=== PATIENT | female | born 1970 | race Caucasian/White ===

== ENCOUNTER 2016-05-30 21:25 | Emergency (ER) | payer SELFPAY ==
[2016-05-30] MEDS ORDERED: ACETAMINOPHEN 325 MG TABLET PO ONE (21:57)
--- NOTE | 2016-05-30 21:57 | ER Document Report ---
ED Medical Screen (RME) - General Stated Complaint: TOOTHACHE Notes: [id number] female presents emergency Department with a broken tooth for the past 4 days that has notable swelling. Denies any drainage, foul odor. Denies any fevers or chills. Been taking Cipro from a family member I have greeted and performed a rapid initial assessment of this patient. A comprehensive ED assessment and evaluation of the patient, analysis of test results and completion of the medical decision making process will be conducted by additional ED providers. TRAVEL OUTSIDE OF THE [place] IN LAST 30 DAYS: No - Related Data Allergies/Adverse Reactions: No Known Allergies Allergy (Unverified 09/02/12 21:49) Past Medical History - Past Medical History Cardiac Medical History: Reports: Hx Hypercholesterolemia, Hx Hypertension Endocrine Medical History: Reports: Hx Hypothyroidism Past Surgical History: Reports: Hx Adenoidectomy, Hx Section - x3, Hx Tonsillectomy, Hx Tubal Ligation - Immunizations Hx Diphtheria, Pertussis, Tetanus Vaccination: Yes
[2016-05-30 21:58] VITALS: BP 119/60
--- NOTE | 2016-05-30 22:47 | ER Document Report ---
ED Oral Problem - General Chief Complaint: Toothache Stated Complaint: TOOTHACHE Time seen by provider: 22:47 Mode of Arrival: Ambulatory Information source: Patient TRAVEL OUTSIDE OF THE [place] IN LAST 30 DAYS: No - HPI Onset: Other - 4 days Quality of pain: Achy Severity: Moderate Context: Fractured tooth Associated symptoms: Dental decay, Toothache. denies: Chills, Cough, Drainage, Drooling, Earache, Fever, Short of breath, Tongue swelling, Unable to swallow, White patches in mouth Worsened by: Cold Relieved by: ibuprofen and BC powders Notes: Patient arrives with complaints of left upper dental pain for the last 4 days. She states that she has several dental caries and the left upper first molar broke off and she is now having some significant pain. She denies any drainage. She denies any swelling. No difficulty breathing or swallowing. She states that she recently got Medicaid and is in the process of getting established with a primary doctor who she states they will help her find a dentist. She does not currently have a dentist at this time. She states that she does not want any pain medication she would just like some antibiotics to help get over an infection. - Related Data Allergies/Adverse Reactions: No Known Allergies Allergy (Unverified 09/02/12 21:49) Past Medical History - Social History Smoking Status: Unknown if Ever Smoked Family History: Reviewed & Not Pertinent Patient has suicidal ideation: No Patient has homicidal ideation: No - Past Medical History Cardiac Medical History: Reports: Hx Hypercholesterolemia, Hx Hypertension Endocrine Medical History: Reports: Hx Hypothyroidism Renal/ Medical History: Denies: Hx Peritoneal Dialysis Past Surgical History: Reports: Hx Adenoidectomy, Hx Section - x3, Hx Tonsillectomy, Hx Tubal Ligation - Immunizations Hx Diphtheria, Pertussis, Tetanus Vaccination: Yes Review of Systems - Review of Systems -: Yes All other systems reviewed and negative Physical Exam - Vital signs Vitals: Temp Pulse Resp BP Pulse Ox 97.9 F 72 18 119/60 99 05/30/16 21:56 05/30/16 21:56 05/30/16 21:56 05/30/16 21:56 05/30/16 21:56 - General General appearance: Appears well, Alert - HEENT Head: Normocephalic, Atraumatic Eyes: Normal Pupils: PERRL Ears: Normal External canal: Normal Tympanic membrane: Normal Mouth/Lips: Other - Patient is known to have widespread dental decay. The patient has tenderness to significantly decayed tooth of the left upper first molar. There is no drainable abscess noted. There is no palatal swelling or abscess. No sublingual induration or swelling. No trismus or drooling. No submental swelling. Mucous membranes: Normal Pharynx: Normal Neck: Normal. No: Lymphadenopathy, Meningismus - Respiratory Respiratory status: No respiratory distress Chest status: Nontender Breath sounds: Normal Chest palpation: Normal - Cardiovascular Rhythm: Regular Heart sounds: Normal auscultation Murmur: No - Extremities General upper extremity: Normal inspection, Nontender, Normal color, Normal ROM , Normal temperature General lower extremity: Normal inspection, Nontender, Normal color, Normal ROM , Normal temperature, Normal weight bearing. No: Hermilo's sign - Neurological Neuro grossly intact: Yes Cognition: Normal Orientation: AAOx4 [place] Coma Scale Eye Opening: Spontaneous [place] Coma Scale Verbal: Oriented [place] Coma Scale Motor: Obeys Commands [place] Coma Scale Total: 15 Speech: Normal Motor strength normal: LUE, RUE, LLE, RLE Sensory: Normal - Psychological Associated symptoms: Normal affect, Normal mood - Skin Skin Temperature: Warm Skin Moisture: Dry Skin Color: Normal Course - Re-evaluation Re-evalutation: 05/30/16 22:54 The patient is nontoxic appearing with stable vitals. He is known to have poor dental hygiene with significant decay noted. She has tenderness over the left upper first molar. There is no drainable abscess noted. No sign of Alok angina or other deep space abscess. The patient has taken a few doses of Cipro which she got from a family member. He'll give her a dose of Pen-Vee K in the emergency department and discharge her home with pen VK. She states that she does not want anything for pain. She will take Tylenol and Motrin as needed. I will also give her referrals for a dentist. - Vital Signs Vital signs: Temp Pulse Resp BP Pulse Ox 97.9 F 72 18 119/60 99 05/30/16 21:56 05/30/16 21:56 05/30/16 21:56 05/30/16 21:56 05/30/16 21:56 Discharge - Discharge Clinical Impression: Dental caries Condition: Stable Disposition: HOME, SELF-CARE Instructions: Penicillin V K ([facility]), Toothache ([facility]), [facility] Additional Instructions: TOOTHACHE: Your pain is due to dental decay. The tooth must be repaired in order for you to feel better. You will, therefore, be referred to a dentist. We do not have dentists on the staff at [facility]. Severe swelling or drainage around a tooth usually means a dental abscess. This also requires evaluation and treatment by the dentist, but antibiotics may be prescribed while awaiting dental treatment. You should be rechecked immediately if you develop major swelling of the face, increasing pain, a lump in the jaw or gums, headache, difficulty swallowing, or fever. PENICILLIN V K: You have been given a prescription for Penicillin VK. Your physician has determined that this is the best antibiotic for your condition. Pen VK can be taken with meals, however more of the antibiotic gets into the bloodstream if it's taken on an empty stomach. Penicillin usually has no side effects. However, allergy to penicillins is common. If you have had an allergic reaction to any drug of the penicillin family, you should never take any other penicillin. Notify your doctor at once if you develop hives, itching, swelling, faintness, or shortness of breath. FOLLOW-UP CARE: You have been referred for follow-up care to the dentists listed below. Call the dentists office for an appointment as you were instructed or within the next two days. If you experience worsening or a significant change in your symptoms, notify the physician immediately or return to the Emergency Department at any time for re-evaluation. [facility] [address] [place], [place] Friday mornings, by appointment [facility] [address] [place] [address] [facility] [address] [facility]. [facility] [address] [facility] [address] [facility]. [facility] [address] [facility]'s [facility]. [email or web address] [address] [place] [address] Friday- 8:00am to 5:00 pm Will see patients from other [facility]. Charges based on income and family size and accepts Medicare, Medicaid, and Insurances Will pull molars [facility], [facility]. [id number] Hours of Operation 8:00 am - 4:30 pm weekdays The following dental offices accept Medicaid: [facility] Dr. Gaspar Dr. Thomas Dr. Sarkar Dr. Hamilton Chad Lang, [place], and Jonas oral surgery Dr. Michael ([place]) Dr. Hale ([place]) [facility] Drs. Seo ([place]) Dr. Wu ([place]) [facility] Dr. Conteh ([place]) Drs. Bunn and ([place]) Medicaid Care Line Take medications as prescribed. Follow up with a dentist at the next appointment. Follow-up sooner for increased pain, fever, difficulty breathing, swelling, or any further concerns. Prescriptions: Penicillin V Potassium [Penicillin Vk 500 mg Tablet] 500 mg PO QID #28 tablet
[2016-05-30] MEDS ORDERED: PENICILLIN V POTASSIUM 500 MG TABLET PO ONE (22:51)
== END 2016-05-30 23:02 | disposition home or self-care (01) ==
LOC: ER 21:25
DX: K02.9 Dental caries, unspecified (principal); E78.00 Pure hypercholesterolemia, unspecified; I10 Essential (primary) hypertension; E03.9 Hypothyroidism, unspecified; Z98.51 Tubal ligation status
CPT/HCPCS: 99282

== ENCOUNTER → 2016-10-01 | Outpatient (CLI) | payer MEDICAID ==
[2016-10-01 09:47] LABS: ABSOLUTE BASOPHILS # (AUTO) 0.1 10^3/uL (0.0-0.2); ABSOLUTE EOSINOPHILS # (AUTO) 0.3 10^3/uL (0.0-0.6); ABSOLUTE LYMPHOCYTES (AUTO) 2.3 10^3/uL (0.5-4.7); ABSOLUTE MONOCYTES (AUTO) 0.5 10^3/uL (0.1-1.4); ABSOLUTE NEUT (AUTO) 4.1 10^3/uL (1.7-8.2); BASOPHILS % (AUTO) 0.7 % (0-2); EOSINOPHILS % (AUTO) 4.6 % (0-6); HEMATOCRIT 35.9 % (36.0-47.0); HEMOGLOBIN 11.9 g/dL (12.0-15.5); HGB HCT DIFFERENCE -0.2; MEAN CORPUSCULAR HEMOGLOBIN 26.7 pg (27.0-33.4); MEAN CORPUSCULAR HGB CONC 33.1 g/dL (32.0-36.0); MEAN CORPUSCULAR VOLUME 81 fl (80-97); MONOCYTES % (AUTO) 7.6 % (3-13); RED BLOOD COUNT 4.45 10^6/uL (3.72-5.28); RED CELL DISTRIBUTION WIDTH 13.8 % (11.5-14.0); SEGMENTED NEUTROPHILS % (AUTO) 56.1 % (42-78); WHITE BLOOD COUNT 7.2 10^3/uL (4.0-10.5)
[2016-10-01 10:09] LABS: ALANINE AMINOTRANSFERASE 36 U/L (9-52); ALBUMIN 3.9 g/dL (3.5-5.0); ALKALINE PHOSPHATASE 83 U/L (38-126); ANION GAP 11 (5-19); ASPARTATE AMINO TRANSFERASE 25 U/L (14-36); BILIRUBIN,DIRECT 0.3 mg/dL (0.0-0.4); BILIRUBIN,TOTAL 0.6 mg/dL (0.2-1.3); BLOOD UREA NITROGEN 17 mg/dL (7-20); CALCIUM 9.3 mg/dL (8.4-10.2); CARBON DIOXIDE 24 mmol/L (22-30); CHLORIDE 105 mmol/L (98-107); CHOLESTEROL 145.27 mg/dL (0-200); CREATININE RESULT 0.75 mg/dL (0.52-1.25); Direct HDL 52 mg/dL (>40); GLUCOSE 103 mg/dL (75-110); MAGNESIUM 1.8 mg/dL (1.6-2.3); POTASSIUM 4.6 mmol/L (3.6-5.0); SODIUM 140.2 mmol/L (137-145); TRIGLYCERIDES 203 mg/dL (<150)
[2016-10-01 10:20] LABS: DIRECT LDL 59 mg/dL (<100)
[2016-10-01 10:25] LABS: VLDL CHOLESTEROL 40.6 mg/dL (10-31)
== END ==
LOC: OD 08:58
PROVIDERS: ATTEND Internal Medicine
DX: E03.9 Hypothyroidism, unspecified (principal); E78.5 Hyperlipidemia, unspecified; R00.2 Palpitations; R53.82 Chronic fatigue, unspecified
CPT/HCPCS: 36415; 80053; 80061; 83735; 84443; 85025

== ENCOUNTER → 2016-12-09 | Outpatient (CLI) | payer MEDICAID | LOC: LAB 20:15 | PROVIDERS: ATTEND Nurse Practitioner Acute Care | DX: R30.0 Dysuria (principal) | CPT/HCPCS: 87086; 87088; 87186 ==

== ENCOUNTER → 2018-04-28 | Outpatient (CLI) | payer SELFPAY | LOC: LAB 21:29 | PROVIDERS: ATTEND Nurse Practitioner Acute Care | DX: R30.0 Dysuria (principal) | CPT/HCPCS: 87086; 87088; 87186 ==

== ENCOUNTER → 2019-10-16 | Outpatient (CLI) | payer SELFPAY ==
[2019-10-16 11:38] LABS: ABSOLUTE BASOPHILS # (AUTO) 0.1 10^3/uL (0.0-0.2); ABSOLUTE EOSINOPHILS # (AUTO) 0.3 10^3/uL (0.0-0.6); ABSOLUTE LYMPHOCYTES (AUTO) 2.1 10^3/uL (0.5-4.7); ABSOLUTE MONOCYTES (AUTO) 0.4 10^3/uL (0.1-1.4); ABSOLUTE NEUT (AUTO) 3.8 10^3/uL (1.7-8.2); BASOPHILS % (AUTO) 0.9 % (0-2); EOSINOPHILS % (AUTO) 4.4 % (0-6); HEMATOCRIT 36.7 % (36.0-47.0); HEMOGLOBIN 12.5 g/dL (12.0-15.5); LYMPHOCYTES % (AUTO) 31.6 % (13-45); MEAN CORPUSCULAR HEMOGLOBIN 26.7 pg (27.0-33.4); MEAN CORPUSCULAR VOLUME 78 fl (80-97); MONOCYTES % (AUTO) 6.3 % (3-13); PLATELET COUNT 266 10^3/uL (150-450); RED BLOOD COUNT 4.68 10^6/uL (3.72-5.28); RED CELL DISTRIBUTION WIDTH 14.5 % (11.5-14.0); SEGMENTED NEUTROPHILS % (AUTO) 56.8 % (42-78); TOTAL CELLS COUNTED % (AUTO) 100 %; WHITE BLOOD COUNT 6.7 10^3/uL (4.0-10.5)
[2019-10-16 11:55] LABS: ALBUMIN 4.3 g/dL (3.5-5.0); ALKALINE PHOSPHATASE 82 U/L (38-126); ANION GAP 9 (5-19); ASPARTATE AMINO TRANSFERASE 30 U/L (14-36); BILIRUBIN,TOTAL 0.5 mg/dL (0.2-1.3); BLOOD UREA NITROGEN 14 mg/dL (7-20); CALCIUM 10.3 mg/dL (8.4-10.2); CARBON DIOXIDE 23 mmol/L (22-30); CHLORIDE 104 mmol/L (98-107); GLUCOSE 109 mg/dL (75-110); POTASSIUM 4.6 mmol/L (3.6-5.0); TOTAL PROTEIN 7.5 g/dL (6.3-8.2); TRIGLYCERIDES 197 mg/dL (<150)
[2019-10-16 12:06] LABS: DIRECT LDL 74 mg/dL (<100)
[2019-10-16 12:10] LABS: VLDL CHOLESTEROL 39.4 mg/dL (10-31)
== END ==
LOC: OD 10:58
PROVIDERS: ATTEND Physician Assistant
DX: E03.9 Hypothyroidism, unspecified (principal); E78.5 Hyperlipidemia, unspecified; R73.03 Prediabetes
CPT/HCPCS: 36415; 80053; 80061; 83036; 84443; 85025

== ENCOUNTER 2020-04-25 07:21 | Emergency (ER) | payer SELFPAY ==
--- NOTE | 2020-04-25 08:18 | ER Document Report ---
ED Respiratory Problem - General Chief Complaint: Shortness Of Breath Stated Complaint: COUGH,CONGESTION,SHORT OF BREATH Time Seen by Provider: 04/25/20 08:03 Primary Care Provider: MADIE DE LA O PA-C [Primary Care Provider] - Follow up as needed Notes: Patient is a 49 year old female that comes to the emergency department for chief complaint of 4 days of cough, some mild congestion, and shortness of breath. She states that at rest she feels okay but if she gets up and walks and especially if she tries to go up stairs she becomes very short of breath. She denies specific chest pain, denies dizziness or passing out. She denies swelling of her legs. She states that 1 week ago she had a fever with her symptoms along with a sore throat but this resolved. She denies loss of taste or smell. She has 2 sick family members, none of them have been tested. She was prescribed Metformin for type 2 diabetes but is now diet-controlled, she is medicated for hypothyroidism and hyperlipidemia. She denies smoking, r ecreational drugs. TRAVEL OUTSIDE OF THE [place] IN LAST 30 DAYS: No - Related Data Allergies/Adverse Reactions: No Known Allergies Allergy (Verified 04/25/20 10:41) Past Medical History - General Information source: Patient - Social History Smoking Status: Former Smoker Chew tobacco use (# tins/day): No Frequency of alcohol use: None Drug Abuse: None Lives with: Family Family History: Reviewed & Not Pertinent - Past Medical History Cardiac Medical History: Reports: Hx Hypercholesterolemia Endocrine Medical History: Reports: Hx Diabetes Mellitus Type 2 - Diet controlled, Hx Hypothyroidism Renal/ Medical History: Denies: Hx Peritoneal Dialysis Past Surgical History: Reports: Hx Adenoidectomy, Hx Section - x3, Hx Tonsillectomy, Hx Tubal Ligation - Immunizations Hx Diphtheria, Pertussis, Tetanus Vaccination: Yes Review of Systems - Review of Systems Constitutional: See HPI EENT: See HPI Cardiovascular: See HPI Respiratory: See HPI Gastrointestinal: No symptoms reported Genitourinary: No symptoms reported Female Genitourinary: No symptoms reported Musculoskeletal: No symptoms reported Skin: No symptoms reported Hematologic/Lymphatic: No symptoms reported Neurological/Psychological: No symptoms reported Physical Exam - Vital signs Vitals: Temp Pulse Resp BP Pulse Ox 98.1 F 99 17 142/82 H 96 04/25/20 07:25 04/25/20 07:25 04/25/20 07:25 04/25/20 07:25 04/25/20 07:25 - Notes Notes: GENERAL: Alert, interacts well. No acute distress. HEAD: Normocephalic, atraumatic. EYES: Pupils equal, round, and reactive to light. Extraocular movements intact. ENT: Oral mucosa moist, tongue midline. Oropharynx unremarkable. Airway patent. Very mild nasal congestion, sinuses non-tender, ear canals unremarkable, TM's intact. NECK: Full range of motion. Supple. Trachea midline. No lymphadenopathy. LUNGS: Clear to auscultation bilaterally, no wheezes, rales, or rhonchi. No respiratory distress. Non-tender chest wall. Occasional irritated cough HEART: Regular rate and rhythm. No murmur ABDOMEN: Soft, non-tender. Non-distended. EXTREMITIES: Moves all 4 extremities spontaneously. No edema, normal radial and dorsalis pedis pulses bilaterally. No cyanosis. BACK: no cervical, thoracic, lumbar midline tenderness. No saddle anesthesia, normal distal neurovascular exam. Moves all extremities in full range of motion. NEUROLOGICAL: Alert and oriented x3. Normal speech. Cranial nerves II through XII grossly intact. Strength 5/5 in all extremities. PSYCH: Normal affect, normal mood. SKIN: Warm, dry, normal turgor. No rashes or lesions noted. Course - Re-evaluation Re-evalutation: Patient is not hypoxic, we did ambulate the patient and she did not have noted dyspnea on exertion or hypoxia. Chest x-ray unremarkable, CBC, chemistry, troponin, EKG unremarkable. Overall work-up reassuring. Patient tested for C OVID-19. Patient given a DuoNeb treatment and afterwards reports she felt much improved. I do suspect a viral upper respiratory illness, no other complications or concerning findings noted at this time. Discussed with patient, provided with symptom management, discussed expectations, quarantine, follow-up, return precautions. Patient states appreciation and agreement. Stable and well-appearing at time of discharge. - Vital Signs Vital signs: Temp Pulse Resp BP Pulse Ox 98.1 F 87 18 119/65 95 04/25/20 07:25 04/25/20 10:41 04/25/20 10:41 04/25/20 10:41 04/25/20 10:41 - Laboratory Results Result Diagrams: 04/25/20 08:32 04/25/20 08:32 Laboratory Results Interpreted: 04/25/20 04/25/20 08:32 08:32 MCV 74 L MCH 24.7 L RDW 15.1 H AST 39 H Critical Laboratory Results Reviewed: No Critical Results - Radiology Results Critical Radiology Results Reviewed: No Critical Results - EKG Interpretation by Me Additional EKG results interpreted by me: EKG shows sinus rhythm at a rate of 94, QTc 446, normal axis, no T wave inversio ns or ST segment changes in consecutive leads Discharge - Discharge Clinical Impression: Person under investigation for COVID-19, Cough, Nasal congestion, Shortness of breath Condition: Stable Disposition: HOME, SELF-CARE Additional Instructions: Your chest x-ray does not show pneumonia, your work-up is reassuring. You appear to have a viral upper respiratory illness, you have been tested for COVID-19, please quarantine while you are awaiting your results. You will be contacted with these results and additional instructions. I recommend the inhaler if needed for cough/shortness of breath, Mucinex for chest congestion, Flonase for nasal congestion and postnasal drip, and you have been treated with Decadron to help with your symptoms. You can take additional [id number] antihistamines and medication if desired. Follow-up with primary care. Return if you worsen including difficulty breathing, chest pain, spiking fevers, passing out, or any other concerning or worsening symptoms. Prescriptions: Fluticasone Propionate [Flonase Nasal [place] 50 Mcg/[place] 16 gm] 2 sprays NASL Q12 #1 inhaler Guaifenesin [Mucinex Sr 600 mg Tablet.sa] 600 mg PO Q12 #24 tablet.sa Albuterol Sulfate [Proair HFA Inhalation Aerosol 8.5 gm MDI] 2 puff IH Q4H PRN #1 mdi PRN Reason: Referrals: MADIE DE LA O PA-C [Primary Care Provider] - Follow up as needed
[2020-04-25 08:44] LABS: ABSOLUTE EOSINOPHILS # (AUTO) 0.1 10^3/uL (0.0-0.6); ABSOLUTE LYMPHOCYTES (AUTO) 1.1 10^3/uL (0.5-4.7); ABSOLUTE MONOCYTES (AUTO) 0.5 10^3/uL (0.1-1.4); ABSOLUTE NEUT (AUTO) 2.8 10^3/uL (1.7-8.2); BASOPHILS % (AUTO) 0.5 % (0-2); EOSINOPHILS % (AUTO) 3.1 % (0-6); HEMATOCRIT 37.3 % (36.0-47.0); HEMOGLOBIN 12.4 g/dL (12.0-15.5); LYMPHOCYTES % (AUTO) 24.1 % (13-45); MEAN CORPUSCULAR HEMOGLOBIN 24.7 pg (27.0-33.4); MEAN CORPUSCULAR HGB CONC 33.4 g/dL (32.0-36.0); MEAN CORPUSCULAR VOLUME 74 fl (80-97); MONOCYTES % (AUTO) 10.8 % (3-13); PLATELET COUNT 194 10^3/uL (150-450); RED BLOOD COUNT 5.04 10^6/uL (3.72-5.28); RED CELL DISTRIBUTION WIDTH 15.1 % (11.5-14.0); SEGMENTED NEUTROPHILS % (AUTO) 61.5 % (42-78); TOTAL CELLS COUNTED % (AUTO) 100 %; WHITE BLOOD COUNT 4.6 10^3/uL (4.0-10.5)
--- NOTE | 2020-04-25 08:52 | RADIOLOGY REPORT (SQ) ---
EXAM DESCRIPTION: CHEST SINGLE VIEW IMAGES COMPLETED DATE/TIME: 04/25/2020 8:45 am REASON FOR STUDY: shortness of breath COMPARISON: 10/08/2008. EXAM PARAMETERS: NUMBER OF VIEWS: One view. TECHNIQUE: Single frontal radiographic view of the chest acquired. RADIATION DOSE: NA LIMITATIONS: None. FINDINGS: LUNGS AND PLEURA: Mild linear atelectasis. No lobar infiltrates, masses or pneumothorax. No pleural effusion. MEDIASTINUM AND HILAR STRUCTURES: No masses. Contour normal. HEART AND VASCULAR STRUCTURES: Heart normal in size. Normal vasculature. BONES: No acute findings. HARDWARE: None in the chest. OTHER: No other significant finding. IMPRESSION: MILD ATELECTASIS. NO ACUTE RADIOGRAPHIC FINDING IN THE CHEST. TECHNICAL DOCUMENTATION: JOB ID: [id number] 2010 [employer]- All Rights Reserved Reading location - IP/workstation name: [email or web address]
[2020-04-25 09:10] LABS: ALBUMIN 3.9 g/dL (3.5-5.0); ALKALINE PHOSPHATASE 71 U/L (38-126); ANION GAP 11 (5-19); ASPARTATE AMINO TRANSFERASE 39 U/L (14-36); BILIRUBIN,DIRECT 0.3 mg/dL (0.0-0.4); BILIRUBIN,TOTAL 0.5 mg/dL (0.2-1.3); BLOOD UREA NITROGEN 11 mg/dL (7-20); CALCIUM 9.1 mg/dL (8.4-10.2); CARBON DIOXIDE 23 mmol/L (22-30); CHLORIDE 104 mmol/L (98-107); GLUCOSE 108 mg/dL (75-110); POTASSIUM 3.7 mmol/L (3.6-5.0); TOTAL PROTEIN 7.1 g/dL (6.3-8.2)
[2020-04-25] MEDS ORDERED: IPRATROPIUM/ALBUTEROL 0.5-2.5 MG/3 ML AMPUL NEB ONE (09:38)
[2020-04-25] MEDS ORDERED: DEXAMETHASONE SOD PHOS INJ 10 MG/1 ML VIAL IV ONE (10:09)
--- NOTE | 2020-04-25 10:28 | EKG REPORT ---
SEVERITY:- BORDERLINE ECG - SINUS RHYTHM BORDERLINE T ABNORMALITIES, ANTERIOR LEADS : Confirmed by: Heriberto Carroll 25-Apr-2020 10:28:16
[2020-04-25 10:43] VITALS: BP 119/65
== END 2020-04-25 10:43 | disposition home or self-care (01) ==
LOC: ER 07:21
DX: U07.1 COVID-19 (principal); J02.9 Acute pharyngitis, unspecified; R06.02 Shortness of breath; R05 Cough; R68.89 Other general symptoms and signs; E78.00 Pure hypercholesterolemia, unspecified; E03.9 Hypothyroidism, unspecified; E11.9 Type 2 diabetes mellitus without complications; Z79.84 Long term (current) use of oral hypoglycemic drugs
CPT/HCPCS: 93005; 94640; 99285; 96374; 36415; 84703; 85025; 87635; 80053; 84484; 85379; 71045; 93010; J1100; C9803

== ENCOUNTER 2020-04-27 00:27 | Inpatient (IN) | payer SELFPAY ==
--- NOTE | 2020-04-27 04:28 | RADIOLOGY REPORT (SQ) ---
CLINICAL HISTORY: SOB COMPARISON: 04/25/2020. TECHNIQUE: XR CHEST 1 VIEW 04/27/2020 3:22 AM ADMISSIONS CLERK FINDINGS: Cardiac silhouette is normal in size. There is mild bibasilar airspace disease. There is no pleural effusion. There is no pneumothorax. There are no acute osseous findings. IMPRESSION: Possible developing bibasilar pneumonia.
[2020-04-27 04:33] LABS: ABSOLUTE LYMPHOCYTES (AUTO) 1.3 10^3/uL (0.5-4.7); ABSOLUTE MONOCYTES (AUTO) 0.5 10^3/uL (0.1-1.4); ABSOLUTE NEUT (AUTO) 3.6 10^3/uL (1.7-8.2); BASOPHILS % (AUTO) 0.4 % (0-2); EOSINOPHILS % (AUTO) 0.2 % (0-6); HEMATOCRIT 34.6 % (36.0-47.0); HEMOGLOBIN 11.7 g/dL (12.0-15.5); MEAN CORPUSCULAR HEMOGLOBIN 24.8 pg (27.0-33.4); MEAN CORPUSCULAR HGB CONC 33.8 g/dL (32.0-36.0); MEAN CORPUSCULAR VOLUME 73 fl (80-97); MONOCYTES % (AUTO) 9.3 % (3-13); PLATELET COUNT 224 10^3/uL (150-450); RED BLOOD COUNT 4.72 10^6/uL (3.72-5.28); SEGMENTED NEUTROPHILS % (AUTO) 66.1 % (42-78); TOTAL CELLS COUNTED % (AUTO) 100 %; WHITE BLOOD COUNT 5.5 10^3/uL (4.0-10.5)
[2020-04-27] MEDS ORDERED: NORMAL SALINE 1000 ML 1,000 ML IV ONE (04:45)
[2020-04-27 04:52] LABS: ALBUMIN 3.6 g/dL (3.5-5.0); ALKALINE PHOSPHATASE 71 U/L (38-126); ANION GAP 10 (5-19); ASPARTATE AMINO TRANSFERASE 26 U/L (14-36); BILIRUBIN,DIRECT 0.3 mg/dL (0.0-0.4); BILIRUBIN,TOTAL 0.5 mg/dL (0.2-1.3); BLOOD UREA NITROGEN 14 mg/dL (7-20); CALCIUM 8.9 mg/dL (8.4-10.2); CARBON DIOXIDE 25 mmol/L (22-30); CHLORIDE 104 mmol/L (98-107); GLUCOSE 115 mg/dL (75-110); POTASSIUM 3.2 mmol/L (3.6-5.0); TOTAL PROTEIN 6.7 g/dL (6.3-8.2)
[2020-04-27] MEDS ORDERED: POTASSIUM CHLORIDE 10 MEQ TABLET.ER PO ONE (06:44)
--- NOTE | 2020-04-27 07:26 | ER Document Report ---
ED Respiratory Problem - General TRAVEL OUTSIDE OF THE U.S. IN LAST 30 DAYS: No <RADHA GUSTAFSON - Last Filed: 04/27/20 07:27> <YUNG MARIANO - Last Filed: 04/27/20 12:34> - General Chief Complaint: Shortness Of Breath Stated Complaint: SHORTNESS OF BREATH Time Seen by Provider: 04/27/20 03:44 Primary Care Provider: MADIE DE LA O PA-C [Primary Care Provider] - Follow up as needed - [facility] Notes: Patient is a 49-year-old female with no significant past medical history who presents with shortness of breath. Patient was here 2 days ago. She tested positive for COVID-19. Patient was discharged home. She states that her shortness of breath is worsening. She states she has significant shortness of breath with ambulating from the bed to the bathroom. She is very fatigued. She denies any diarrhea or vomiting. No chest pain. Positive for cough. Patient lives with her sister who also tested positive for Covid. (RADHA GUSTAFSON) - Related Data Allergies/Adverse Reactions: No Known Allergies Allergy (Verified 04/27/20 01:52) Past Medical History - General Information source: Patient - Social History Smoking Status: Former Smoker Frequency of alcohol use: None Drug Abuse: None Family History: Reviewed & Not Pertinent - Past Medical History Cardiac Medical History: Reports: Hx Hypercholesterolemia, Hx Hypertension Endocrine Medical History: Reports: Hx Diabetes Mellitus Type 2 - Diet controlled, Hx Hypothyroidism Renal/ Medical History: Denies: Hx Peritoneal Dialysis Past Surgical History: Reports: Hx Adenoidectomy, Hx Section - x3, Hx Tonsillectomy, Hx Tubal Ligation - Immunizations Hx Diphtheria, Pertussis, Tetanus Vaccination: Yes <RADHA GUSTAFSON - Last Filed: 04/27/20 07:27> Review of Systems <RADHA GUSTAFSON - Last Filed: 04/27/20 07:27> - Review of Systems Notes: CONSTITUTIONAL: No fever or weight loss. Positive for fatigue. SKIN: No rash. HENT: No congestion, ear pain, or sore throat. CARDIOVASCULAR: No chest pain or edema. RESPIRATORY: No cough, shortness of breath, congestion, or wheezing. GASTROINTESTINAL: No abdominal pain, nausea, vomiting, bloody stools or jagdish rrhea. GENITOURINARY: No dysuria. MUSCULOSKELETAL: No joint pain or swelling. NEUROLOGIC: No seizures. No focal weakness or sensory changes. HEMATOLOGIC: No unusual bruising or bleeding. PSYCHIATRIC: No depression or anxiety. (RADHA GUSTAFSON) Physical Exam - General General appearance: Appears well In distress: None <RADHA GUSTAFSON - Last Filed: 04/27/20 07:27> - Vital signs Vitals: Temp Pulse Resp BP Pulse Ox 98.2 F 126 H 20 127/60 H 92 04/27/20 00:36 04/27/20 00:36 04/27/20 00:36 04/27/20 00:36 04/27/20 00:36 - General Notes: VITAL SIGNS: Tachypneic. GENERAL: No acute distress, non-toxic appearance. HEAD: Normal with no signs of head trauma. EYES: Conjunctiva normal, no discharge. EARS: Hearing grossly intact. NOSE: Normal. NECK: Normal range of motion, no tenderness, supple CHEST: Coarse lung sounds in the lower lobes. CARDIAC: Regular rate and rhythm. VASCULAR: No Edema. ABDOMEN: Normal and soft with no tenderness. MUSCULOSKELETAL: Good range of motion of all major joints. Extremities without clubbing, cyanosis or edema. NEUROLOGICAL: Alert and oriented x 3. No focal sensory or strength deficits. Speech normal. Follows commands appropriately. PSYCHIATRIC: Normal Affect, judgement and mood. SKIN: Normal appearance with no rashes or lesions. (RADHA GUSTAFSON) Course - Laboratory Results Result Diagrams: 04/27/20 04:00 04/27/20 04:00 Critical Laboratory Results Reviewed: No Critical Results - Radiology Results Critical Radiology Results Reviewed: No Critical Results <RADHA GUSTAFSON - Last Filed: 04/27/20 07:27> - Laboratory Results Result Diagrams: 04/27/20 04:00 04/27/20 04:00 - Radiology Results Critical Radiology Results Reviewed: Yes Attending or Supervising Physician who Reviewed Radiology: YUNG MARIANO <YUNG MARIANO - Last Filed: 04/27/20 12:34> - Re-evaluation Re-evalutation: 04/27/20 07:29 Patient is tachypneic occasionally to the 30s. She is 90 to 92% on room air. I ambulated her and her pulse ox remained 93%, however, her heart rate increased to 130 bpm. Patient was ordered a fluid bolus and dexamethasone. She had a D- dimer that was negative about 2 days ago so I do not believe symptoms are from a PE. Her x-ray today appears much worse than her x-ray 2 days ago. I discussed with the hospitalist as she is borderline for admission. He recommended I order a CRP, ferritin, LDH and reevaluate her. I discussed this with the patient. She is very agreeable to this. She will be signed out to my colleague at the end of my shift. (RADHA GUSTAFSON) - Vital Signs Vital signs: Temp Pulse Resp BP Pulse Ox 99.1 F 126 H 13 117/65 94 04/27/20 09:00 04/27/20 00:36 04/27/20 11:01 04/27/20 11:01 04/27/20 11:01 - Laboratory Results Laboratory Results Interpreted: 04/27/20 04/27/20 04/27/20 04:00 04:00 07:09 Hgb 11.7 L Hct 34.6 L MCV 73 L MCH 24.8 L RDW 15.0 H Potassium 3.2 L Glucose 115 H C-Reactive Protein 34.9 H - Radiology Results Radiology Results Interpreted: 04/27/20 12:32 Chest X-Ray 04/27/20 03:22 IMPRESSION: Possible developing bibasilar pneumonia. Chest/Abdomen CTA 04/27/20 08:42 IMPRESSION: Bibasilar and lingular infiltrates consistent with pneumonia. Right hilar adenopathy most likely reactive although other etiologies cannot be excluded and radiographic surveillance is recommended. No pulmonary emboli. (YUNG MARIANO) Discharge <RADHA GUSTAFSON - Last Filed: 04/27/20 07:27> - Discharge Admitting Provider: Steve (Hospitalist) Unit Admitted: Telemetry <YUNG MARIANO - Last Filed: 04/27/20 12:34> - Discharge Clinical Impression: Pneumonia due to 2019-nCoV, Low oxygen saturation, Dyspnea on exertion Condition: Good Disposition: ADMITTED INPATIENT Instructions: COVID-19 Guidance for Persons Under Investigation Referrals: MADIE DE LA O PA-C [Primary Care Provider] - Follow up as needed
[2020-04-27] MEDS ORDERED: DEXAMETHASONE SOD PHOS INJ 10 MG/1 ML VIAL IV ONE (07:33)
[2020-04-27 09:40] LABS: C-REACTIVE PROTEIN 34.9 mg/L (<10.0)
[2020-04-27 10:13] LABS: FERRITIN 32.7 ng/mL (6.2-137.0)
--- NOTE | 2020-04-27 10:25 | RADIOLOGY REPORT (SQ) ---
EXAM DESCRIPTION: CTA CHEST IMAGES COMPLETED DATE/TIME: 04/27/2020 9:59 am REASON FOR STUDY: Shortness of breath COMPARISON: Chest x-ray done earlier the same day. TECHNIQUE: CT scan of the chest performed using helical scanning technique with dynamic intravenous contrast injection. Images reviewed with lung, soft tissue and bone windows. Reconstructed coronal and sagittal MPR images reviewed. Additional 3 dimensional post-processing performed to develop Maximal Intensity Projection images (DE P). All images stored on PACS. All CT scanners at this facility use dose modulation, iterative reconstruction, and/or weight based d osing when appropriate to reduce radiation dose to as low as reasonably achievable (ALARA). [facility]: Dose Right [facility]: CareDose [facility]: Dose Right [facility]: Teradose 4D [facility]: Community Cash CONTRAST TYPE AND DOSE: contrast/concentration: Isovue 350.00 mmol/ml; Total Contrast Delivered: 60. 0 ml; Total Saline Delivered: 55.4 ml Contrast bolus adequate for pulmonary arteries and aorta. RENAL FUNCTION: BUN 14, creatinine 0.72 RADIATION DOSE: CT Rad equipment meets quality standard of care and radiation dose reduction techniq ues were employed. CTDIvol: 6.6 - 18.8 mGy. DLP: 546 mGy-cm. . LIMITATIONS: None. FINDINGS: LUNGS AND PLEURA: Fairly extensive bibasilar and lingular airspace disease consistent with pneumonia. AORTA AND GREAT VESSELS: No aneurysm. Contrast bolus not optimized for the aorta. HEART: No pericardial effusion. No significant coronary artery calcifications. PULMONARY ARTERIES: No emboli visualized in the main pulmonary arteries or the segmental branches. HILAR AND MEDIASTINAL STRUCTURES: 3.2 x 2.0 cm right hilar lymph node. 2nd 1.2 cm right hilar lymph node. HARDWARE: None in the chest. UPPER ABDOMEN: Heterogeneous attenuation within the liver most likely due to timing of the bolus. THYROID AND OTHER SOFT TISSUES: No masses. No adenopathy. BONES: No acute or significant finding. 3D MIPS: Confirm above findings. OTHER: No other significant finding. IMPRESSION: Bibasilar and lingular infiltrates consistent with pneumonia. Right hilar adenopathy mo st likely reactive although other etiologies cannot be excluded and radiographic surveillance is simin mmended. No pulmonary emboli. COMMENT: Quality ID # [id number]: Final reports with documentation of one or more dose reduction techniques (e.g., Automated exposure control, adjustment of the mA and/or kV according to patient size, use of iterative reconstruction technique) TECHNICAL DOCUMENTATION: JOB ID: [id number] 2010 [employer] (previously [employer])- All Rights Reserved Reading location - IP/workstation name: [email or web address]
[2020-04-27] MEDS ORDERED: ONDANSETRON HCL INJ/PF 4 MG/2 ML SDV IV PRN (11:56)
[2020-04-27] MEDS ORDERED: ACETAMINOPHEN 325 MG TABLET PO PRN (11:56)
[2020-04-27] MEDS: METHYLPREDNISOLONE INJ 40 MG/1 ML SDV IV SCH ×2 (12:50→21:07)
[2020-04-27] MEDS: CHOLECALCIFEROL (D3) 1,000 UNIT (25 MCG) TABLET PO SCH (12:51)
[2020-04-27] MEDS: ASCORBIC ACID 500 MG TABLET PO SCH ×2 (12:51→17:18)
[2020-04-27] MEDS: LEVOTHYROXINE SODIUM 0.025 MG TABLET PO SCH (12:52)
[2020-04-27] MEDS: LEVOTHYROXINE SODIUM 0.1 MG TABLET PO SCH (12:58)
[2020-04-27] MEDS: VITAMIN B COMPLEX TABLET PO SCH (12:58)
[2020-04-27] MEDS ORDERED: IVERMECTIN 3 MG TABLET PO ONE (13:00)
--- NOTE | 2020-04-27 14:31 | PDOC H&P ---
History of Present Illness Admission Date/PCP: 04/27/20 12:36 MADIE DE LA O PA-C History of Present Illness: FELIZ SHEFFIELD is a 49 year old female with a history of obesity, history of Nadya's thyroiditis with secondary hypothyroidism, hss-nhhhrcr-rbgurvcea diabetes mellitus, and hyperlipidemia who presents with dyspnea. She has been sick for about 9 or 10 days total. She said it first started out with malaise, fatigue, body aches and occasional chills. She said a few days ago she started noticing worsening of her breathing. Last couple of days is gotten worse. She says she is at a point now where she cannot walk more than a few steps without getting short of breath. She feels a little short of breath at rest. Her SPO2 on room air was around 90%. This was while her breathing was in the upper 20s per minute. She said that several days ago she lost her sense of taste and smell. She tested positive for coronavirus in the ER. She has not received any outpatient therapy. She had an elevated CRP. She had bilateral patchy opacities on chest imaging. No evidence of PE. Past Medical History Cardiac Medical History: Reports: Hyperlipidema, Hypertension Endocrine Medical History: Reports: Diabetes Mellitus Type 2 - Diet controlled, Hypothyroidism Past Surgical History Past Surgical History: Reports: Adenoidectomy, Section - x3, Tonsillectomy, Tubal Ligation Social History Smoking Status: Former Smoker Family History Family History: Reviewed & Not Pertinent, DM, Hyperlipidemia, Hypertension Parental Family History Reviewed: Yes Children Family History Reviewed: Yes Sibling(s) Family History Reviewed.: Yes Medication/Allergy Home Medications: Amoxicillin 500 mg PO TID #30 tablet 09/02/12 Ibuprofen [Motrin 800 Mg Tablet] 800 mg PO TID PRN #30 tablet 09/02/12 Mometasone Furoate [Nasonex] 1 spray NS BID #1 spray.pump 09/02/12 Hydrocodone/Acetaminophen [Bronson 5-325 Tablet] 1 each PO Q4 PRN #15 tablet 04/22/14 Penicillin V Potassium [Penicillin Vk 500 mg Tablet] 500 mg PO QID #28 tablet 05/30/16 Albuterol Sulfate [Proair HFA Inhalation Aerosol 8.5 gm MDI] 2 puff IH Q4H PRN #1 mdi 04/25/20 Fluticasone Propionate [Flonase Nasal Kincaid 50 Mcg/Kincaid 16 gm] 2 sprays NASL Q12 #1 inhaler 04/25/20 Guaifenesin [Mucinex Sr 600 mg Tablet.sa] 600 mg PO Q12 #24 tablet.sa 04/25/20 Allergies/Adverse Reactions: No Known Allergies Allergy (Verified 04/27/20 01:52) Review of Systems All systems: reviewed and no additional remarkable complaints except as stated - All systems were reviewed and were negative except as noted in the HPI Physical Exam Vital Signs: Temp Pulse Resp BP Pulse Ox 99 F 126 H 23 H 107/55 L 95 04/27/20 13:00 04/27/20 00:36 04/27/20 13:01 04/27/20 13:01 04/27/20 13:01 Intake & Output 04/26/20 04/27/20 04/28/20 06:59 06:59 06:59 Intake Total 1000 Balance 1000 Weight 80.286 kg General appearance: PRESENT: cooperative, mild distress, obese Head exam: PRESENT: atraumatic, normocephalic Eye exam: PRESENT: EOMI, PERRLA. ABSENT: conjunctival injection, nystagmus, scleral icterus Ear exam: PRESENT: normal external ear exam Mouth exam: PRESENT: moist, neck supple Throat exam: ABSENT: post pharyngeal erythema Neck exam: PRESENT: full ROM. ABSENT: carotid bruit, JVD, lymphadenopathy, meningismus, tenderness, thyromegaly Respiratory exam: PRESENT: crackles - Bibasilar, symmetrical, tachypnea, unlabored. ABSENT: accessory muscle use, chest wall tenderness, prolonged expiratory phas, rhonchi, wheezes Cardiovascular exam: PRESENT: +S1, +S2, tachycardia Pulses: PRESENT: normal carotid pulses Vascular exam: PRESENT: normal capillary refill GI/Abdominal exam: PRESENT: normal bowel sounds, soft. ABSENT: distended, guarding, rebound, tenderness Extremities exam: ABSENT: clubbing, pedal edema Musculoskeletal exam: PRESENT: normal inspection. ABSENT: deformity Neurological exam: PRESENT: alert, awake, oriented to person, oriented to place, oriented to time, oriented to situation, CN II-XII grossly intact. ABSENT: motor sensory deficit Psychiatric exam: PRESENT: anxious Skin exam: PRESENT: dry, warm Results Laboratory Results: 04/27/20 04:00 04/27/20 04:00 04/27/20 04/27/20 04/27/20 04:00 04:00 07:09 WBC 5.5 RBC 4.72 Hgb 11.7 L Hct 34.6 L MCV 73 L MCH 24.8 L MCHC 33.8 RDW 15.0 H Plt Count 224 Seg Neutrophils % 66.1 Sodium 138.9 Potassium 3.2 L Chloride 104 Carbon Dioxide 25 Anion Gap 10 BUN 14 Creatinine 0.72 Est GFR ( Amer) > 60 Glucose 115 H Calcium 8.9 Ferritin 32.70 Total Bilirubin 0.5 AST 26 Alkaline Phosphatase 71 C-Reactive Protein 34.9 H Total Protein 6.7 Albumin 3.6 04/27/20 04:00 Troponin I < 0.012 Impressions: Chest X-Ray 04/27/20 03:22 IMPRESSION: Possible developing bibasilar pneumonia. Chest/Abdomen CTA 04/27/20 08:42 IMPRESSION: Bibasilar and lingular infiltrates consistent with pneumonia. Right hilar adenopathy most likely reactive although other etiologies cannot be excluded and radiographic surveillance is recommended. No pulmonary emboli. Assessment and Plan - Diagnosis (1) Acute hypoxemic respiratory failure Is this a current diagnosis for this admission?: Yes (2) Pneumonia due to 2019-nCoV Is this a current diagnosis for this admission?: Yes (3) Type 2 diabetes mellitus Qualifiers: Diabetes mellitus terminal system operator insulin use: without jail use Diabetes mellitus complication status: without complication Qualified Code(s): E11.9 - Type 2 diabetes mellitus without complications Is this a current diagnosis for this admission?: Yes (4) Hyperlipidemia Qualifiers: Hyperlipidemia type: other hyperlipidemia Qualified Code(s): E78.49 - Other hyperlipidemia; E78.4 - Other hyperlipidemia Is this a current diagnosis for this admission?: Yes (5) Hypothyroidism Qualifiers: Hypothyroidism type: due to Nadya's thyroiditis Qualified Code(s): E0 3.8 - Other specified hypothyroidism; E06.3 - Autoimmune thyroiditis Is this a current diagnosis for this admission?: Yes (6) Obesity (BMI 30.0-34.9) Is this a current diagnosis for this admission?: Yes - Plan Summary Summary: We will treat her with the MATH+ protocol, consisting of numerous vitamin supplements, IV Solu-Medrol, and ivermectin. We will also do once daily doxycycline per protocol. D-dimer is less than 1, so we will do regular Lovenox prophylaxis. Supplemental O2 to maintain SPO2 greater than 90%. She says going to medication she takes at home are levothyroxine and atorvastatin, which will be continued. We will monitor her blood sugars for worsening secondary to steroid therapy. She says she does not take anything for diabetes at home and manages it with diet, having just been diagnosed 6 weeks ago. - Time Time Spent with patient: 35 or more minutes Anticipated Discharge Disposition: Unknown Anticipated Discharge Timeframe: Unknown - Inpatient Certification Based on my medical assessment, after consideration of the patient's comorbidit ies, presenting symptoms, or acuity I expect that the services needed warrant INPATIENT care.: Yes I certify that my determination is in accordance with my understanding of Me nanci's requirements for reasonable and necessary INPATIENT services [42 CFR 412.3e].: Yes Medical Necessity: Significant Comorbidiites Make Outpatient Treatment Too Risky, Need Close Monitoring Due to Risk of Patient Decompensation, Need For Continuous Telemetry Monitoring, Risk of Complication if Not Cared For in Hospital
[2020-04-27] MEDS: ATORVASTATIN CALCIUM 20 MG TABLET PO SCH (21:06)
[2020-04-27] MEDS: MELATONIN 5 MG TABLET PO SCH (21:07)
--- NOTE | 2020-04-27 23:39 | EKG REPORT ---
SEVERITY:- BORDERLINE ECG - SINUS TACHYCARDIA BORDERLINE T ABNORMALITIES, DIFFUSE LEADS : Confirmed by: Heriberto Carroll 27-Apr-2020 23:38:14
[2020-04-28] MEDS: ASCORBIC ACID 500 MG TABLET PO SCH ×4 (05:29→17:16)
[2020-04-28] MEDS: LEVOTHYROXINE SODIUM 0.1 MG TABLET PO SCH (05:30)
[2020-04-28] MEDS: LEVOTHYROXINE SODIUM 0.025 MG TABLET PO SCH (05:30)
[2020-04-28 05:41] LABS: ABSOLUTE LYMPHOCYTES (AUTO) 0.9 10^3/uL (0.5-4.7); ABSOLUTE MONOCYTES (AUTO) 0.3 10^3/uL (0.1-1.4); ABSOLUTE NEUT (AUTO) 2.9 10^3/uL (1.7-8.2); BASOPHILS % (AUTO) 0.1 % (0-2); EOSINOPHILS % (AUTO) 0.1 % (0-6); HEMOGLOBIN 11.7 g/dL (12.0-15.5); LYMPHOCYTES % (AUTO) 22.3 % (13-45); MEAN CORPUSCULAR HEMOGLOBIN 24.4 pg (27.0-33.4); MEAN CORPUSCULAR HGB CONC 33.4 g/dL (32.0-36.0); MEAN CORPUSCULAR VOLUME 73 fl (80-97); MONOCYTES % (AUTO) 6.7 % (3-13); PLATELET COUNT 216 10^3/uL (150-450); RED BLOOD COUNT 4.78 10^6/uL (3.72-5.28); RED CELL DISTRIBUTION WIDTH 14.9 % (11.5-14.0); SEGMENTED NEUTROPHILS % (AUTO) 70.8 % (42-78); TOTAL CELLS COUNTED % (AUTO) 100 %
[2020-04-28 05:52] LABS: ALBUMIN 3.4 g/dL (3.5-5.0); ALKALINE PHOSPHATASE 66 U/L (38-126); ANION GAP 8 (5-19); ASPARTATE AMINO TRANSFERASE 21 U/L (14-36); BILIRUBIN,DIRECT 0.2 mg/dL (0.0-0.4); BILIRUBIN,TOTAL 0.4 mg/dL (0.2-1.3); BLOOD UREA NITROGEN 13 mg/dL (7-20); C-REACTIVE PROTEIN 44.5 mg/L (<10.0); CALCIUM 9.2 mg/dL (8.4-10.2); CARBON DIOXIDE 22 mmol/L (22-30); CHLORIDE 107 mmol/L (98-107); GLUCOSE 175 mg/dL (75-110); POTASSIUM 4.3 mmol/L (3.6-5.0); TOTAL PROTEIN 6.4 g/dL (6.3-8.2)
[2020-04-28] MEDS ORDERED: INFLUENZA QUAD (6MOS+) 2020-21 VAC 0.5 ML SYR IM ONE (08:00)
[2020-04-28] MEDS: VITAMIN B COMPLEX TABLET PO SCH (09:20)
[2020-04-28] MEDS: CITALOPRAM HYDROBROMIDE 20 MG TABLET PO SCH (09:20)
[2020-04-28] MEDS: CHOLECALCIFEROL (D3) 1,000 UNIT (25 MCG) TABLET PO SCH (09:20)
[2020-04-28] MEDS: METHYLPREDNISOLONE INJ 40 MG/1 ML SDV IV SCH (09:21)
[2020-04-28] MEDS: ENOXAPARIN SODIUM INJ 80 MG/0.8 ML DISP.SYRIN SUBCUT SCH (09:21)
[2020-04-28] MEDS ORDERED: ENOXAPARIN SODIUM INJ 40 MG/0.4 ML DISP.SYRIN SUBCUT SCH (10:00)
[2020-04-28 11:15] LABS: APPEARANCE,URINE SLIGHTLY-CLOUDY; BILIRUBIN,URINE NEGATIVE (NEGATIVE); COLOR,URINE YELLOW; GLUCOSE, URINE 50 mg/dL (NEGATIVE); KETONES,URINE 20 mg/dL (NEGATIVE); LEUKOCYTE ESTERASE,URINE NEGATIVE (NEGATIVE); NITRITE,URINE NEGATIVE (NEGATIVE); PROTEIN,URINE NEGATIVE (NEGATIVE); URINE SPECIFIC GRAVITY 1.018; UROBILINOGEN,URINE NEGATIVE mg/dL (<2.0)
[2020-04-28] MEDS ORDERED: GUAIFENESIN/D-METHORPHAN (200-20 MG) SYRUP 10 ML PO PRN (15:07)
--- NOTE | 2020-04-28 15:21 | PDOC PROGRESS REPORT ---
Subjective Date:: 04/28/20 Subjective:: The patient was admitted yesterday. She reports that she was sick for approximately 9 days prior to admission but over the last 4 days was becoming much more short of breath. She in fact experienced increasing shortness of breath especially with even limited exertion. She is coughing this morning. Her oxygen requirements are still fairly low but may need to be increased depe nding on her status. Reason For Visit: PNEUMONIA DUE TO COVID-19 Physical Exam Vital Signs: Temp Pulse Resp BP Pulse Ox 98.6 F 78 16 103/46 L 91 L 04/28/20 11:31 04/28/20 11:31 04/28/20 07:41 04/28/20 11:31 04/28/20 11:31 Intake & Output 04/27/20 04/28/20 04/29/20 06:59 06:59 06:59 Intake Total 1000 444 Balance 1000 444 Weight 80.286 kg 81 kg General appearance: PRESENT: cooperative, mild distress, well-developed. ABSENT: disheveled Head exam: PRESENT: atraumatic, normocephalic Eye exam: PRESENT: conjunctiva pink, EOMI. ABSENT: scleral icterus Ear exam: PRESENT: normal external ear exam. ABSENT: bleeding, drainage Mouth exam: PRESENT: moist, tongue midline Teeth exam: ABSENT: poor dentation Neck exam: ABSENT: carotid bruit, JVD, lymphadenopathy, tenderness, tracheostomy Respiratory exam: PRESENT: rales - Faint rales at bases, tachypnea, unlabored. ABSENT: accessory muscle use, chest wall tenderness, wheezes Cardiovascular exam: PRESENT: RRR, +S1, +S2. ABSENT: bradycardia, diastolic murmur, irregular rhythm, systolic murmur, tachycardia GI/Abdominal exam: PRESENT: normal bowel sounds, soft. ABSENT: distended, tenderness Rectal exam: PRESENT: deferred Gentrourinary exam: ABSENT: indwelling catheter Extremities exam: ABSENT: pedal edema Musculoskeletal exam: PRESENT: ambulatory. ABSENT: deformity, dislocation Neurological exam: PRESENT: alert, awake, oriented to person, oriented to place, oriented to time, oriented to situation, CN II-XII grossly intact. ABSENT: altered Psychiatric exam: PRESENT: appropriate affect. ABSENT: agitated, anxious Focused psych exam: ABSENT: delusional, paranoid, restlessness Skin exam: PRESENT: dry, warm. ABSENT: rash Results Laboratory Results: 04/28/20 04:38 04/28/20 04:38 04/28/20 04/28/20 04/28/20 04:38 04:38 10:30 WBC 4.0 RBC 4.78 Hgb 11.7 L Hct 35.0 L MCV 73 L MCH 24.4 L MCHC 33.4 RDW 14.9 H Plt Count 216 Seg Neutrophils % 70.8 Sodium 136.8 L Potassium 4.3 Chloride 107 Carbon Dioxide 22 Anion Gap 8 BUN 13 Creatinine 0.53 Est GFR ( Amer) > 60 Glucose 175 H Calcium 9.2 Ferritin 42.80 Total Bilirubin 0.4 AST 21 Alkaline Phosphatase 66 C-Reactive Protein 44.5 H Total Protein 6.4 Albumin 3.4 L Urine Color YELLOW Urine Appearance SLIGHTLY-CLOUDY Urine pH 6.0 Ur Specific [place] 1.018 Urine Protein NEGATIVE Urine Glucose (UA) 50 H Urine Ketones 20 H Urine Blood MODERATE H Urine Nitrite NEGATIVE Ur Leukocyte Esterase NEGATIVE Urine WBC (Auto) 2 Urine RBC (Auto) 4 04/27/20 04:00 Troponin I < 0.012 Impressions: Chest X-Ray 04/27/20 03:22 IMPRESSION: Possible developing bibasilar pneumonia. Chest/Abdomen CTA 04/27/20 08:42 IMPRESSION: Bibasilar and lingular infiltrates consistent with pneumonia. Right hilar adenopathy most likely reactive although other etiologies cannot be excluded and radiographic surveillance is recommended. No pulmonary emboli. 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 Qualified Code(s): E03.8 - Other specified hypothyroidism; E06.3 - Autoimmune thyroiditis Is this a current diagnosis for this admission?: Yes (6) Obesity (BMI 30.0-34.9) Is this a current diagnosis for this admission?: Yes (7) Anxiety and depression Is this a current diagnosis for this admission?: Yes - Plan Summary Summary: (1) Acute hypoxemic respiratory failure (2) Pneumonia due to 2019-nCoV (4) Hyperlipidemia (5) Hypothyroidism (6) Obesity (BMI 30.0-34.9) (7) Anxiety and depression 04/27/2020 We will treat her with the MATH+ protocol, consisting of numerous vitamin supplements, IV Solu-Medrol, and ivermectin. We will also do once daily doxycycline per protocol. D-dimer is less than 1, so we will do regular Lovenox prophylaxis. Supplemental O2 to maintain SPO2 greater than 90%. She says going to medication she takes at home are levothyroxine and atorvastatin, which will be continued. We will monitor her blood sugars for worsening secondary to st eroid therapy. She says she does not take anything for diabetes at home and manages it with diet, having just been diagnosed 6 weeks ago. 04/28/2020 Hypoxic respiratory failure with [id number] MATH+ protocol. Added Mucinex for the cough. Continue to monitor oxygen requirements closely. Wean to room air as tolerated. Patient is not on oxygen at home. Hyperlipidemia-continue atorvastatin Hypothyroidism-continue levothyroxine Anxiety/depression-continue citalopram Obesity-BMI is 34.9. Once Covid is completely resolved encourage diet and exercise. - Time Time Spent with patient: 15-24 minutes Medications reviewed and adjusted accordingly: Yes Anticipated Discharge Disposition: Home, Self Care Anticipated Discharge Timeframe: Unknown
[2020-04-29] MEDS: ATORVASTATIN CALCIUM 20 MG TABLET PO SCH ×2 (00:08→22:12)
[2020-04-29] MEDS: GUAIFENESIN 600 MG TABLET.SA PO SCH ×5 (00:08→23:43)
[2020-04-29] MEDS: ASCORBIC ACID 500 MG TABLET PO SCH ×5 (00:08→23:32)
[2020-04-29] MEDS: MELATONIN 5 MG TABLET PO SCH ×2 (00:09→22:12)
[2020-04-29] MEDS: METHYLPREDNISOLONE INJ 40 MG/1 ML SDV IV SCH ×4 (00:09→22:13)
[2020-04-29] MEDS: ENOXAPARIN SODIUM INJ 80 MG/0.8 ML DISP.SYRIN SUBCUT SCH ×3 (00:09→22:12)
[2020-04-29] MEDS: LEVOTHYROXINE SODIUM 0.1 MG TABLET PO SCH (05:49)
[2020-04-29] MEDS: LEVOTHYROXINE SODIUM 0.025 MG TABLET PO SCH (05:49)
[2020-04-29 06:14] LABS: ABSOLUTE LYMPHOCYTES (AUTO) 1.2 10^3/uL (0.5-4.7); ABSOLUTE MONOCYTES (AUTO) 0.8 10^3/uL (0.1-1.4); ABSOLUTE NEUT (AUTO) 7.8 10^3/uL (1.7-8.2); BASOPHILS % (AUTO) 0.1 % (0-2); HEMATOCRIT 33.9 % (36.0-47.0); HEMOGLOBIN 11.4 g/dL (12.0-15.5); LYMPHOCYTES % (AUTO) 12.2 % (13-45); MEAN CORPUSCULAR HEMOGLOBIN 24.8 pg (27.0-33.4); MEAN CORPUSCULAR HGB CONC 33.5 g/dL (32.0-36.0); MEAN CORPUSCULAR VOLUME 74 fl (80-97); MONOCYTES % (AUTO) 7.9 % (3-13); PLATELET COUNT 221 10^3/uL (150-450); RED CELL DISTRIBUTION WIDTH 15.1 % (11.5-14.0); SEGMENTED NEUTROPHILS % (AUTO) 79.8 % (42-78); TOTAL CELLS COUNTED % (AUTO) 100 %
[2020-04-29 06:26] LABS: WHITE BLOOD COUNT 9.8 10^3/uL (4.0-10.5)
[2020-04-29 06:43] LABS: ALBUMIN 3.3 g/dL (3.5-5.0); ALKALINE PHOSPHATASE 67 U/L (38-126); ANION GAP 5 (5-19); ASPARTATE AMINO TRANSFERASE 21 U/L (14-36); BILIRUBIN,DIRECT 0.2 mg/dL (0.0-0.4); BILIRUBIN,TOTAL 0.4 mg/dL (0.2-1.3); BLOOD UREA NITROGEN 19 mg/dL (7-20); CARBON DIOXIDE 26 mmol/L (22-30); CHLORIDE 106 mmol/L (98-107); GLUCOSE 148 mg/dL (75-110); POTASSIUM 3.9 mmol/L (3.6-5.0); TOTAL PROTEIN 6.1 g/dL (6.3-8.2)
[2020-04-29] MEDS: VITAMIN B COMPLEX TABLET PO SCH (09:39)
[2020-04-29] MEDS: CHOLECALCIFEROL (D3) 1,000 UNIT (25 MCG) TABLET PO SCH (09:40)
[2020-04-29] MEDS: CITALOPRAM HYDROBROMIDE 20 MG TABLET PO SCH (09:40)
[2020-04-29] MEDS ORDERED: IVERMECTIN 3 MG TABLET PO ONE (10:00)
--- NOTE | 2020-04-29 12:42 | PDOC PROGRESS REPORT ---
Subjective Date:: 04/29/20 Subjective:: Patient is concerned. She was getting more short of breath with just moving veronika und in the bed. She still remains on 2 L nasal cannula and saturations went anywhere from 90 to 95%. Reason For Visit: PNEUMONIA DUE TO COVID-19 Physical Exam Vital Signs: Temp Pulse Resp BP Pulse Ox 97.9 F 81 20 109/54 L 90 L 04/29/20 11:49 04/29/20 11:49 04/29/20 11:49 04/29/20 11:49 04/29/20 11:49 Intake & Output 04/28/20 04/29/20 04/30/20 06:59 06:59 06:59 Intake Total 444 300 Output Total 800 Balance 444 -500 Weight 81 kg 81 kg General appearance: PRESENT: cooperative, mild distress, well-developed Head exam: PRESENT: atraumatic, normocephalic Eye exam: PRESENT: conjunctiva pink, EOMI. ABSENT: scleral icterus Ear exam: PRESENT: normal external ear exam. ABSENT: bleeding, drainage Mouth exam: PRESENT: moist, tongue midline Respiratory exam: PRESENT: clear to auscultation lorene, symmetrical, unlabored. ABSENT: rales, rhonchi, tachypnea, wheezes Cardiovascular exam: PRESENT: RRR, +S1, +S2. ABSENT: bradycardia, diastolic murmur, irregular rhythm, systolic murmur, tachycardia GI/Abdominal exam: PRESENT: normal bowel sounds, soft. ABSENT: distended, guarding, tenderness Rectal exam: PRESENT: deferred Gentrourinary exam: ABSENT: indwelling catheter Extremities exam: PRESENT: pedal edema - Trace Musculoskeletal exam: PRESENT: ambulatory - Limited by dyspnea, normal inspection. ABSENT: deformity, dislocation Neurological exam: PRESENT: alert, awake, oriented to person, oriented to place, oriented to time, oriented to situation, CN II-XII grossly intact. ABSENT: altered, motor sensory deficit Psychiatric exam: PRESENT: anxious, appropriate affect. ABSENT: agitated Focused psych exam: ABSENT: delusional, paranoid, restlessness Skin exam: PRESENT: dry, normal color, warm. ABSENT: rash Results Laboratory Results: 04/29/20 05:35 04/29/20 05:35 04/29/20 04/29/20 05:35 05:35 WBC 9.8 D RBC 4.60 Hgb 11.4 L Hct 33.9 L MCV 74 L MCH 24.8 L MCHC 33.5 RDW 15.1 H Plt Count 221 Seg Neutrophils % 79.8 H Sodium 137.2 Potassium 3.9 Chloride 106 Carbon Dioxide 26 Anion Gap 5 BUN 19 Creatinine 0.61 Est GFR ( Amer) > 60 Glucose 148 H Calcium 9.0 Ferritin 40.10 Total Bilirubin 0.4 AST 21 Alkaline Phosphatase 67 C-Reactive Protein 18.0 H Total Protein 6.1 L Albumin 3.3 L 04/27/20 04:00 Troponin I < 0.012 Impressions: Chest X-Ray 04/27/20 03:22 IMPRESSION: Possible developing bibasilar pneumonia. Chest/Abdomen CTA 04/27/20 08:42 IMPRESSION: Bibasilar and lingular infiltrates consistent with pneumonia. Right hilar adenopathy most likely reactive although other etiologies cannot be excluded and radiographic surveillance is recommended. No pulmonary emboli. 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 Qualified Code(s): E03.8 - Other specified hypothyroidism; E06.3 - Autoimmune thyroiditis Is this a current diagnosis for this admission?: Yes (6) Obesity (BMI 30.0-34.9) Is this a current diagnosis for this admission?: Yes (7) Anxiety and depression Is this a current diagnosis for this admission?: Yes - Plan Summary Summary: (1) Acute hypoxemic respiratory failure (2) Pneumonia due to 2019-nCoV (4) Hyperlipidemia (5) Hypothyroidism (6) Obesity (BMI 30.0-34.9) (7) Anxiety and depression 04/27/2020 We will treat her with the MATH+ protocol, consisting of numerous vitamin supplements, IV Solu-Medrol, and ivermectin. We will also do once daily doxycycline per protocol. D-dimer is less than 1, so we will do regular Lovenox prophylaxis. Supplemental O2 to maintain SPO2 greater than 90%. She says going to medication she takes at home are levothyroxine and atorvastatin, which will be continued. We will monitor her blood sugars for worsening secondary to steroid therapy. She says she does not take anything for diabetes at home and manages it with diet, having just been diagnosed 6 weeks ago. 04/28/2020 Hypoxic respiratory failure with [id number] MATH+ protocol. Added Mucinex for the cough. Continue to monitor oxygen requirements closely. Wean to room air as tolerated. Patient is not on oxygen at home. Hyperlipidemia-continue atorvastatin Hypothyroidism-continue levothyroxine Anxiety/depression-continue citalopram Obesity-BMI is 34.9. Once Covid is completely resolved encourage diet and exercise. 04/29/2020 Hypoxic respiratory failure with [id number] dose increased. Also added albuterol inhaler as needed. Taper oxygen to room air as tolerated. Hyperlipidemia, hypothyroidism and anxiety/depression-no change in treatment plan at this time Unfortunately the patient desaturates just moving around in bed. Her oxygen requirements have not gone up today however her sense of shortness of breath has increased. Hopefully the addition of rescue inhaler and increased steroid dosing as well as the addition of Mucinex yesterday will help. - Time Time Spent with patient: 15-24 minutes Medications reviewed and adjusted accordingly: Yes Anticipated Discharge Disposition: Home, Self Care Anticipated Discharge Timeframe: Unknown
[2020-04-29] MEDS ORDERED: ALBUTEROL SULFATE HFA (90 MCG/PUFF) 8 GM MDI IH PRN (12:43)
[2020-04-29] MEDS: ZINC SULFATE 220 MG CAPSULE PO SCH (13:12)
[2020-04-30] MEDS: LEVOTHYROXINE SODIUM 0.1 MG TABLET PO SCH (05:25)
[2020-04-30] MEDS: LEVOTHYROXINE SODIUM 0.025 MG TABLET PO SCH (05:27)
[2020-04-30] MEDS: METHYLPREDNISOLONE INJ 40 MG/1 ML SDV IV SCH ×3 (05:28→22:45)
[2020-04-30] MEDS: ASCORBIC ACID 500 MG TABLET PO SCH ×3 (05:28→17:51)
[2020-04-30 05:48] LABS: ABSOLUTE LYMPHOCYTES (AUTO) 1.1 10^3/uL (0.5-4.7); ABSOLUTE MONOCYTES (AUTO) 0.4 10^3/uL (0.1-1.4); ABSOLUTE NEUT (AUTO) 4.7 10^3/uL (1.7-8.2); BASOPHILS % (AUTO) 0.6 % (0-2); HEMATOCRIT 34.2 % (36.0-47.0); HEMOGLOBIN 11.5 g/dL (12.0-15.5); LYMPHOCYTES % (AUTO) 17.7 % (13-45); MEAN CORPUSCULAR HEMOGLOBIN 24.3 pg (27.0-33.4); MEAN CORPUSCULAR HGB CONC 33.5 g/dL (32.0-36.0); MEAN CORPUSCULAR VOLUME 73 fl (80-97); MONOCYTES % (AUTO) 6.4 % (3-13); PLATELET COUNT 232 10^3/uL (150-450); RED BLOOD COUNT 4.73 10^6/uL (3.72-5.28); RED CELL DISTRIBUTION WIDTH 15.2 % (11.5-14.0); SEGMENTED NEUTROPHILS % (AUTO) 75.3 % (42-78); TOTAL CELLS COUNTED % (AUTO) 100 %; WHITE BLOOD COUNT 6.3 10^3/uL (4.0-10.5)
[2020-04-30 06:35] LABS: ALBUMIN 3.3 g/dL (3.5-5.0); ALKALINE PHOSPHATASE 69 U/L (38-126); ANION GAP 7 (5-19); ASPARTATE AMINO TRANSFERASE 18 U/L (14-36); BILIRUBIN,DIRECT 0.1 mg/dL (0.0-0.4); BILIRUBIN,TOTAL 0.4 mg/dL (0.2-1.3); BLOOD UREA NITROGEN 19 mg/dL (7-20); C-REACTIVE PROTEIN 18.2 mg/L (<10.0); CALCIUM 9.1 mg/dL (8.4-10.2); CARBON DIOXIDE 26 mmol/L (22-30); CHLORIDE 104 mmol/L (98-107); GLUCOSE 176 mg/dL (75-110); POTASSIUM 4.2 mmol/L (3.6-5.0); TOTAL PROTEIN 6.1 g/dL (6.3-8.2)
[2020-04-30] MEDS: ZINC SULFATE 220 MG CAPSULE PO SCH (10:09)
[2020-04-30] MEDS: VITAMIN B COMPLEX TABLET PO SCH (10:09)
[2020-04-30] MEDS: CITALOPRAM HYDROBROMIDE 20 MG TABLET PO SCH (10:09)
[2020-04-30] MEDS: CHOLECALCIFEROL (D3) 1,000 UNIT (25 MCG) TABLET PO SCH (10:10)
[2020-04-30] MEDS: ENOXAPARIN SODIUM INJ 80 MG/0.8 ML DISP.SYRIN SUBCUT SCH ×2 (10:11→22:44)
[2020-04-30] MEDS: GUAIFENESIN 600 MG TABLET.SA PO SCH ×3 (10:12→23:10)
--- NOTE | 2020-04-30 12:21 | PDOC PROGRESS REPORT ---
Subjective Date:: 04/30/20 Subjective:: Unfortunately the patient's oxygen requirement is now 4 L. This is very frustra ting to her. She was extremely pleased that her D-dimer has dropped significantly. Reason For Visit: PNEUMONIA DUE TO COVID-19 Physical Exam Vital Signs: Temp Pulse Resp BP Pulse Ox 97.4 F 77 27 H 94/69 L 90 L 04/30/20 07:28 04/30/20 07:28 04/30/20 07:28 04/30/20 07:28 04/30/20 07:28 Intake & Output 04/29/20 04/30/20 05/01/20 06:59 06:59 06:59 Intake Total 300 120 Output Total 800 Balance -500 120 Weight 81 kg 81 kg General appearance: PRESENT: cooperative, mild distress, well-developed Head exam: PRESENT: atraumatic, normocephalic Eye exam: PRESENT: conjunctiva pink, EOMI. ABSENT: scleral icterus Ear exam: PRESENT: normal external ear exam. ABSENT: bleeding, drainage Neck exam: ABSENT: carotid bruit, JVD, lymphadenopathy Respiratory exam: PRESENT: clear to auscultation lorene, symmetrical, tachypnea, unlabored. ABSENT: rales, rhonchi, wheezes Cardiovascular exam: PRESENT: RRR, +S1, +S2. ABSENT: bradycardia, diastolic murmur, irregular rhythm, systolic murmur, tachycardia GI/Abdominal exam: PRESENT: normal bowel sounds, soft. ABSENT: distended, guarding, tenderness Rectal exam: PRESENT: deferred Gentrourinary exam: ABSENT: indwelling catheter Extremities exam: ABSENT: clubbing, pedal edema Musculoskeletal exam: PRESENT: ambulatory, normal inspection. ABSENT: deformity, dislocation Neurological exam: PRESENT: alert, awake, oriented to person, oriented to place, oriented to time, oriented to situation, CN II-XII grossly intact. ABSENT: altered Psychiatric exam: PRESENT: anxious. ABSENT: agitated Focused psych exam: ABSENT: delusional, paranoid, restlessness Skin exam: PRESENT: dry, normal color, warm. ABSENT: rash Results Laboratory Results: 04/30/20 05:30 04/30/20 05:30 04/30/20 04/30/20 05:30 05:30 WBC 6.3 RBC 4.73 Hgb 11.5 L Hct 34.2 L MCV 73 L MCH 24.3 L MCHC 33.5 RDW 15.2 H Plt Count 232 Seg Neutrophils % 75.3 Sodium 136.9 L Potassium 4.2 Chloride 104 Carbon Dioxide 26 Anion Gap 7 BUN 19 Creatinine 0.55 Est GFR ( Amer) > 60 Glucose 176 H Calcium 9.1 Ferritin 37.40 Total Bilirubin 0.4 AST 18 Alkaline Phosphatase 69 C-Reactive Protein 18.2 H Total Protein 6.1 L Albumin 3.3 L 04/27/20 04:00 Troponin I < 0.012 Impressions: Chest X-Ray 04/27/20 03:22 IMPRESSION: Possible developing bibasilar pneumonia. Chest/Abdomen CTA 04/27/20 08:42 IMPRESSION: Bibasilar and lingular infiltrates consistent with pneumonia. Right hilar adenopathy most likely reactive although other etiologies cannot be excluded and radiographic surveillance is recommended. No pulmonary emboli. 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 Qualified Code(s): E03.8 - Other specified hypothyroidism; E06.3 - Autoimmune thyroiditis Is this a current diagnosis for this admission?: Yes (6) Obesity (BMI 30.0-34.9) Is this a current diagnosis for this admission?: Yes (7) Anxiety and depression Is this a current diagnosis for this admission?: Yes - Plan Summary Summary: (1) Acute hypoxemic respiratory failure (2) Pneumonia due to 2019-nCoV (4) Hyperlipidemia (5) Hypothyroidism (6) Obesity (BMI 30.0-34.9) (7) Anxiety and depression 04/27/2020 We will treat her with the MATH+ protocol, consisting of numerous vitamin supplements, IV Solu-Medrol, and ivermectin. We will also do once daily doxycycline per protocol. D-dimer is less than 1, so we will do regular Lovenox prophylaxis. Supplemental O2 to maintain SPO2 greater than 90%. She says going to medication she takes at home are levothyroxine and atorvastatin, which will be continued. We will monitor her blood sugars for worsening secondary to steroid therapy. She says she does not take anything for diabetes at home and manages it with diet, having just been diagnosed 6 weeks ago. 04/28/2020 Hypoxic respiratory failure with [id number] MATH+ protocol. Added Mucinex for the cough. Continue to monitor oxygen requirements closely. Wean to room air as tolerated. Patient is not on oxygen at home. Hyperlipidemia-continue atorvastatin Hypothyroidism-continue levothyroxine Anxiety/depression-continue citalopram Obesity-BMI is 34.9. Once Covid is completely resolved encourage diet and exe rcise. 04/29/2020 Hypoxic respiratory failure with [id number] dose increased. Also added albuterol inhaler as needed. Taper oxygen to room air as tolerated. Hyperlipidemia, hypothyroidism and anxiety/depression-no change in treatment plan at this time Unfortunately the patient desaturates just moving around in bed. Her oxygen requirements have not gone up today however her sense of shortness of breath has increased. Hopefully the addition of rescue inhaler and increased steroid dosing as well as the addition of Mucinex yesterday will help. 04/30/2020 Hypoxic respiratory failure with Covid pneumonia-because of the increased oxygen requirement I will increase her steroid dosing. Her inflammatory markers are improving. We will continue to monitor closely. Consider convalescent plasma for tomorrow. Hyperlipidemia, hypothyroidism, anxiety depression-no changes in treatment plan at this time. - Time Time Spent with patient: 15-24 minutes Medications reviewed and adjusted accordingly: Yes Anticipated Discharge Disposition: Unknown Anticipated Discharge Timeframe: Unknown
[2020-04-30] MEDS ORDERED: DEXTROSE 40% GEL 15 GM TUBE PO PRN ×2 (17:03)
[2020-04-30] MEDS ORDERED: GLUCAGON,HUMAN RECOMB 1 MG INJ IM PRN (17:03)
[2020-04-30] MEDS ORDERED: DEXTROSE 50%-WATER 25 GM/50 ML DISP.SYRIN IV PRN ×2 (17:03)
[2020-04-30] MEDS ORDERED: NORMAL SALINE 250 ML IV PRN (20:36)
[2020-04-30] MEDS: MELATONIN 5 MG TABLET PO SCH (22:43)
[2020-04-30] MEDS: INSULIN REG, HUMAN 100 UNIT/ML 3 ML VIAL (PYX) SUBCUT SCH (22:43)
[2020-04-30] MEDS: ATORVASTATIN CALCIUM 20 MG TABLET PO SCH (22:44)
[2020-05-01] MEDS: ASCORBIC ACID 500 MG TABLET PO SCH ×4 (00:15→17:29)
[2020-05-01] MEDS: LEVOTHYROXINE SODIUM 0.025 MG TABLET PO SCH (06:31)
[2020-05-01] MEDS: METHYLPREDNISOLONE INJ 40 MG/1 ML SDV IV SCH ×3 (06:31→21:30)
[2020-05-01] MEDS: LEVOTHYROXINE SODIUM 0.1 MG TABLET PO SCH (06:32)
[2020-05-01] MEDS: INSULIN REG, HUMAN 100 UNIT/ML 3 ML VIAL (PYX) SUBCUT SCH ×4 (07:52→21:30)
[2020-05-01 08:11] LABS: HEMATOCRIT 34.7 % (36.0-47.0); HEMOGLOBIN 11.5 g/dL (12.0-15.5); MEAN CORPUSCULAR HEMOGLOBIN 24.5 pg (27.0-33.4); MEAN CORPUSCULAR HGB CONC 33.1 g/dL (32.0-36.0); MEAN CORPUSCULAR VOLUME 74 fl (80-97); PLATELET COUNT 264 10^3/uL (150-450); RED BLOOD COUNT 4.69 10^6/uL (3.72-5.28); RED CELL DISTRIBUTION WIDTH 14.7 % (11.5-14.0); WHITE BLOOD COUNT 8.2 10^3/uL (4.0-10.5)
[2020-05-01 08:31] LABS: ALBUMIN 3.3 g/dL (3.5-5.0); ALKALINE PHOSPHATASE 57 U/L (38-126); ANION GAP 9 (5-19); ASPARTATE AMINO TRANSFERASE 25 U/L (14-36); BILIRUBIN,DIRECT 0.3 mg/dL (0.0-0.4); BILIRUBIN,TOTAL 0.5 mg/dL (0.2-1.3); BLOOD UREA NITROGEN 24 mg/dL (7-20); CALCIUM 9.3 mg/dL (8.4-10.2); CARBON DIOXIDE 24 mmol/L (22-30); CHLORIDE 104 mmol/L (98-107); GLUCOSE 162 mg/dL (75-110); POTASSIUM 4.6 mmol/L (3.6-5.0); TOTAL PROTEIN 6.5 g/dL (6.3-8.2)
[2020-05-01] MEDS: CHOLECALCIFEROL (D3) 1,000 UNIT (25 MCG) TABLET PO SCH (10:02)
[2020-05-01] MEDS: VITAMIN B COMPLEX TABLET PO SCH (10:02)
[2020-05-01] MEDS: ZINC SULFATE 220 MG CAPSULE PO SCH (10:02)
[2020-05-01] MEDS: ENOXAPARIN SODIUM INJ 80 MG/0.8 ML DISP.SYRIN SUBCUT SCH (10:03)
[2020-05-01] MEDS: GUAIFENESIN 600 MG TABLET.SA PO SCH ×2 (10:03→21:23)
[2020-05-01] MEDS: CITALOPRAM HYDROBROMIDE 20 MG TABLET PO SCH (10:03)
--- NOTE | 2020-05-01 11:10 | PDOC PROGRESS REPORT ---
Subjective Date:: 05/01/20 Subjective:: The patient appears to be breathing more comfortably today. Reason For Visit: PNEUMONIA DUE TO COVID-19 Physical Exam Vital Signs: Temp Pulse Resp BP Pulse Ox 97.7 F 56 L 20 115/69 90 L 04/30/20 22:00 05/01/20 02:00 04/30/20 19:46 04/30/20 19:46 04/30/20 19:46 Intake & Output 04/30/20 05/01/20 05/02/20 06:59 06:59 06:59 Intake Total 120 240 Balance 120 240 Weight 81 kg 81 kg General appearance: PRESENT: cooperative, mild distress, well-developed Head exam: PRESENT: atraumatic, normocephalic Eye exam: PRESENT: conjunctiva pink, EOMI. ABSENT: scleral icterus Ear exam: PRESENT: normal external ear exam. ABSENT: bleeding, drainage Mouth exam: PRESENT: moist, tongue midline Respiratory exam: PRESENT: clear to auscultation lorene, symmetrical, unlabored. ABSENT: rales, rhonchi, tachypnea, wheezes Cardiovascular exam: PRESENT: RRR, +S1, +S2. ABSENT: bradycardia, diastolic murmur, irregular rhythm, rubs, systolic murmur, tachycardia GI/Abdominal exam: PRESENT: normal bowel sounds, soft. ABSENT: distended, guarding, tenderness Rectal exam: PRESENT: deferred Gentrourinary exam: ABSENT: indwelling catheter Extremities exam: ABSENT: pedal edema Musculoskeletal exam: PRESENT: ambulatory, normal inspection. ABSENT: deformity, dislocation Neurological exam: PRESENT: alert, awake, oriented to person, oriented to place, oriented to time, oriented to situation, CN II-XII grossly intact. ABSENT: altered Psychiatric exam: PRESENT: appropriate affect. ABSENT: agitated, anxious Focused psych exam: ABSENT: delusional, paranoid, restlessness Skin exam: PRESENT: dry, normal color, warm. ABSENT: rash Results Laboratory Results: 05/01/20 07:44 05/01/20 07:44 05/01/20 05/01/20 05/01/20 07:44 07:44 07:44 WBC 8.2 RBC 4.69 Hgb 11.5 L Hct 34.7 L MCV 74 L MCH 24.5 L MCHC 33.1 RDW 14.7 H Plt Count 264 Sodium 136.7 L Potassium 4.6 Chloride 104 Carbon Dioxide 24 Anion Gap 9 BUN 24 H Creatinine 0.54 Est GFR ( Amer) > 60 Glucose 162 H Calcium 9.3 Magnesium 2.0 Total Bilirubin 0.5 AST 25 Alkaline Phosphatase 57 Total Protein 6.5 Albumin 3.3 L Blood Type O POSITIVE 04/27/20 04:00 Troponin I < 0.012 Impressions: Chest X-Ray 04/27/20 03:22 IMPRESSION: Possible developing bibasilar pneumonia. Chest/Abdomen CTA 04/27/20 08:42 IMPRESSION: Bibasilar and lingular infiltrates consistent with pneumonia. Right hilar adenopathy most likely reactive although other etiologies cannot be excluded and radiographic surveillance is recommended. No pulmonary emboli. 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 Qualified Code(s): E03.8 - Other specified hypothyroidism; E06.3 - Autoimmune thyroiditis Is this a current diagnosis for this admission?: Yes (6) Obesity (BMI 30.0-34.9) Is this a current diagnosis for this admission?: Yes (7) Anxiety and depression Is this a current diagnosis for this admission?: Yes - Plan Summary Summary: (1) Acute hypoxemic respiratory failure (2) Pneumonia due to nCoV (4) Hyperlipidemia (5) Hypothyroidism (6) Obesity (BMI 30.0-34.9) (7) Anxiety and depression 04/27/2020 We will treat her with the MATH+ protocol, consisting of numerous vitamin supplements, IV Solu-Medrol, and ivermectin. We will also do once daily doxycycline per protocol. D-dimer is less than 1, so we will do regular Lovenox prophylaxis. Supplemental O2 to maintain SPO2 greater than 90%. She says going to medication she takes at home are levothyroxine and atorvastatin, which will be continued. We will monitor her blood sugars for worsening secondary to steroid therapy. She says she does not take anything for diabetes at home and manages it with diet, having just been diagnosed 6 weeks ago. 04/28/2020 Hypoxic respiratory failure with [id number] MATH+ protocol. Added Mucinex for the cough. Continue to monitor oxygen requirements closely. Wean to room air as tolerated. Patient is not on oxygen at home. Hyperlipidemia-continue atorvastatin Hypothyroidism-continue levothyroxine Anxiety/depression-continue citalopram Obesity-BMI is 34.9. Once Covid is completely resolved encourage diet and exercise. 04/29/2020 Hypoxic respiratory failure with [id number] dose increased. Also added albuterol inhaler as needed. Taper oxygen to room air as tolerated. Hyperlipidemia, hypothyroidism and anxiety/depression-no change in treatment plan at this time Unfortunately the patient desaturates just moving around in bed. Her oxygen requirements have not gone up today however her sense of shortness of breath has increased. Hopefully the addition of rescue inhaler and increased steroid dosing as well as the addition of Mucinex yesterday will help. 04/30/2020 Hypoxic respiratory failure with Covid pneumonia-because of the increased oxygen requirement I will increase her steroid dosing. Her inflammatory markers are improving. We will continue to monitor closely. Consider convalescent plasma for tomorrow. Hyperlipidemia, hypothyroidism, anxiety depression-no changes in treatment plan at this time. 05/01/2020 Hypoxic respiratory failure with Covid pneumonia-her steroids were increased yesterday and she will be getting convalescent plasma today. Her inflammatory markers were improved yesterday and I will recheck them for tomorrow. We will try to wean oxygen as tolerated. Treatment for hyperlipidemia, hypothyroidism, anxiety/depression will remain the same. Her appetite has been decreased and her oral intake has been marginal therefore I will give her gentle IV fluids and recheck her chemistries tomorrow. - Time Time Spent with patient: 15-24 minutes Medications reviewed and adjusted accordingly: Yes Anticipated Discharge Disposition: Home, Self Care Anticipated Discharge Timeframe: Unknown
[2020-05-01] MEDS: RINGERS SOLUTION,LACTATED 1,000 ML IV PRN ×2 (13:24→21:45)
[2020-05-01] MEDS: MELATONIN 5 MG TABLET PO SCH (21:31)
[2020-05-01] MEDS: ATORVASTATIN CALCIUM 20 MG TABLET PO SCH (21:31)
[2020-05-02] MEDS: ASCORBIC ACID 500 MG TABLET PO SCH ×5 (00:45→23:39)
[2020-05-02 01:50] LABS: APPEARANCE,URINE CLEAR; BILIRUBIN,URINE NEGATIVE (NEGATIVE); COLOR,URINE YELLOW; GLUCOSE, URINE 50 mg/dL (NEGATIVE); KETONES,URINE NEGATIVE (NEGATIVE); LEUKOCYTE ESTERASE,URINE NEGATIVE (NEGATIVE); NITRITE,URINE NEGATIVE (NEGATIVE); PROTEIN,URINE NEGATIVE (NEGATIVE); URINE SPECIFIC GRAVITY 1.014; UROBILINOGEN,URINE NEGATIVE mg/dL (<2.0)
[2020-05-02] MEDS: LEVOTHYROXINE SODIUM 0.1 MG TABLET PO SCH (06:15)
[2020-05-02] MEDS: METHYLPREDNISOLONE INJ 40 MG/1 ML SDV IV SCH ×3 (06:15→21:41)
[2020-05-02] MEDS: LEVOTHYROXINE SODIUM 0.025 MG TABLET PO SCH (06:15)
[2020-05-02 07:06] LABS: HEMATOCRIT 32.3 % (36.0-47.0); HEMOGLOBIN 10.8 g/dL (12.0-15.5); MEAN CORPUSCULAR HEMOGLOBIN 24.2 pg (27.0-33.4); MEAN CORPUSCULAR HGB CONC 33.3 g/dL (32.0-36.0); MEAN CORPUSCULAR VOLUME 73 fl (80-97); PLATELET COUNT 250 10^3/uL (150-450); RED BLOOD COUNT 4.44 10^6/uL (3.72-5.28); RED CELL DISTRIBUTION WIDTH 14.7 % (11.5-14.0); WHITE BLOOD COUNT 7.6 10^3/uL (4.0-10.5)
[2020-05-02 07:34] LABS: ANION GAP 6 (5-19); BLOOD UREA NITROGEN 22 mg/dL (7-20); C-REACTIVE PROTEIN 6.4 mg/L (<10.0); CALCIUM 8.9 mg/dL (8.4-10.2); CARBON DIOXIDE 27 mmol/L (22-30); CHLORIDE 104 mmol/L (98-107); GLUCOSE 160 mg/dL (75-110); POTASSIUM 4.4 mmol/L (3.6-5.0)
[2020-05-02] MEDS: INSULIN REG, HUMAN 100 UNIT/ML 3 ML VIAL (PYX) SUBCUT SCH ×4 (07:53→21:40)
[2020-05-02 08:09] LABS: ABSOLUTE LYMPHOCYTES# (MANUAL) 1.5 10^3/uL (0.5-4.7); ABSOLUTE MONOCYTES # (MANUAL) 0.3 10^3/uL (0.1-1.4); BASOPHILS % (MANUAL) 0 % (0-2); EOSINOPHILS % (MANUAL) 0 % (0-6); LYMPHOCYTES % (MANUAL) 15 % (13-45); MONOCYTES % (MANUAL) 4 % (3-13); SEGMENTED NEUTROPHILS % (MAN) 76 % (42-78); TOTAL CELLS COUNTED 100
[2020-05-02 08:11] LABS: POLYCHROMASIA SLIGHT
[2020-05-02 08:12] LABS: OVALOCYTES SLIGHT; PLATELET COMMENT ADEQUATE; POIKILOCYTOSIS SLIGHT
[2020-05-02] MEDS: CHOLECALCIFEROL (D3) 1,000 UNIT (25 MCG) TABLET PO SCH (09:57)
[2020-05-02] MEDS: CITALOPRAM HYDROBROMIDE 20 MG TABLET PO SCH (09:57)
[2020-05-02] MEDS: ZINC SULFATE 220 MG CAPSULE PO SCH (09:57)
[2020-05-02] MEDS: GUAIFENESIN 600 MG TABLET.SA PO SCH ×3 (09:57→21:41)
[2020-05-02] MEDS: VITAMIN B COMPLEX TABLET PO SCH (09:58)
[2020-05-02] MEDS: ENOXAPARIN SODIUM INJ 40 MG/0.4 ML DISP.SYRIN SUBCUT SCH (09:58)
--- NOTE | 2020-05-02 19:54 | PDOC PROGRESS REPORT ---
Subjective Date:: 05/02/20 Subjective:: Patient was seen on morning rounds. She was found sitting up in the recliner, comfortably, on supplemental oxygen by nasal cannula at 5 L/min. She was turned to room air with a gradual decline in her SPO2 to 88% with increased tachypnea and frequency of nonproductive cough. She is placed on 3 L with resolution of her symptoms and return of SPO2 to 93%. Overall, she reports that she is feeling much better. She does continue to have dyspnea at rest, nonproductive cough, and generalized fatigue. She denies fever, chills, chest pain, palpitation, abdominal pain, nausea vomit ing and diarrhea. She has no questions or concerns at this time. No concerns per nursing. Reason For Visit: PNEUMONIA DUE TO COVID-19 Physical Exam Vital Signs: Temp Pulse Resp BP Pulse Ox 97.7 F 62 16 113/76 96 05/02/20 17:09 05/02/20 17:09 05/02/20 17:09 05/02/20 17:09 05/02/20 17:09 Intake & Output 05/01/20 05/02/20 05/03/20 06:59 06:59 06:59 Intake Total 240 2636 1780 Output Total 600 Balance 240 2036 1780 Weight 81 kg 81 kg General appearance: PRESENT: no acute distress, cooperative, obese, well- developed, well-nourished Head exam: PRESENT: atraumatic, normocephalic Eye exam: PRESENT: conjunctiva pink, EOMI, PERRLA. ABSENT: scleral icterus Mouth exam: PRESENT: moist, tongue midline Respiratory exam: PRESENT: clear to auscultation lorene, symmetrical, unlabored, other - Supplemental oxygen by nasal cannula. ABSENT: rales, rhonchi, wheezes Cardiovascular exam: PRESENT: RRR. ABSENT: diastolic murmur, rubs, systolic murmur Pulses: PRESENT: normal dorsalis pedis pul Vascular exam: PRESENT: normal capillary refill Extremities exam: PRESENT: full ROM. ABSENT: calf tenderness, clubbing, pedal edema Musculoskeletal exam: PRESENT: ambulatory Neurological exam: PRESENT: alert, awake, oriented to person, oriented to place, oriented to time, oriented to situation, CN II-XII grossly intact. ABSENT: motor sensory deficit Psychiatric exam: PRESENT: appropriate affect, normal mood. ABSENT: homicidal ideation, suicidal ideation Skin exam: PRESENT: dry, intact, warm. ABSENT: cyanosis, rash Results Laboratory Results: 05/02/20 05:45 05/02/20 05:45 05/01/20 05/02/20 05/02/20 23:40 05:45 05:45 WBC 7.6 RBC 4.44 Hgb 10.8 L Hct 32.3 L MCV 73 L MCH 24.2 L MCHC 33.3 RDW 14.7 H Plt Count 250 Seg Neutrophils % Not Reportable Sodium 137.2 Potassium 4.4 Chloride 104 Carbon Dioxide 27 Anion Gap 6 BUN 22 H Creatinine 0.60 Est GFR ( Amer) > 60 Glucose 160 H Calcium 8.9 Magnesium 2.0 Ferritin 25.80 C-Reactive Protein 6.4 Urine Color YELLOW Urine Appearance CLEAR Urine pH 6.0 Ur Specific [place] 1.014 Urine Protein NEGATIVE Urine Glucose (UA) 50 H Urine Ketones NEGATIVE Urine Blood SMALL H Urine Nitrite NEGATIVE Ur Leukocyte Esterase NEGATIVE Urine WBC (Auto) 0 Urine RBC (Auto) 0 04/27/20 04:00 Troponin I < 0.012 Impressions: Chest X-Ray 04/27/20 03:22 IMPRESSION: Possible developing bibasilar pneumonia. Chest/Abdomen CTA 04/27/20 08:42 IMPRESSION: Bibasilar and lingular infiltrates consistent with pneumonia. Right hilar adenopathy most likely reactive although other etiologies cannot be excluded and radiographic surveillance is recommended. No pulmonary emboli. 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 We will also do once daily doxycycline per protocol. D-dimer is less than 1, so we will do regular Lovenox prophylaxis. Supplemental O2 to maintain SPO2 greater than 90%. She says going to medication she takes at home are levothyroxine and atorvastatin, which will be continued. We will monitor her blood sugars for worsening secondary to steroid therapy. She says she does not take anything for diabetes at home and manages it with diet, having just been diagnosed 6 weeks ago. 04/28/2020 Hypoxic respiratory failure with [id number] MATH+ protocol. Added Mucinex for the cough. Continue to monitor oxygen requirements closely. Wean to room air as tolerated. Patient is not on oxygen at home. Hyperlipidemia-continue atorvastatin Hypothyroidism-continue levothyroxine Anxiety/depression-continue citalopram Obesity-BMI is 34.9. Once Covid is completely resolved encourage diet and exercise. 04/29/2020 Hypoxic respiratory failure with [id number] dose increased. Also added albuterol inhaler as needed. Taper oxygen to room air as tolerated. Hyperlipidemia, hypothyroidism and anxiety/depression-no change in treatment plan at this time Unfortunately the patient desaturates just moving around in bed. Her oxygen r equirements have not gone up today however her sense of shortness of breath has increased. Hopefully the addition of rescue inhaler and increased steroid dosing as well as the addition of Mucinex yesterday will help. 04/30/2020 Hypoxic respiratory failure with Covid pneumonia-because of the increased oxygen requirement I will increase her steroid dosing. Her inflammatory markers are improving. We will continue to monitor closely. Consider convalescent plasma for tomorrow. Hyperlipidemia, hypothyroidism, anxiety depression-no changes in treatment plan at this time. 05/01/2020 Hypoxic respiratory failure with Covid pneumonia-her steroids were increased yesterday and she will be getting convalescent plasma today. Her inflammatory markers were improved yesterday and I will recheck them for tomorrow. We will try to wean oxygen as tolerated. Treatment for hyperlipidemia, hypothyroidism, anxiety/depression will remain the same. Her appetite has been decreased and her oral intake has been marginal therefore I will give her gentle IV fluids and recheck her chemistries tomorrow. 03/02/21 s/p Ivermectin, Convalescent plasma, Solu-medrol, and vitamin regimen. Continue to wean supplemental oxygen as tolerated; keep SpO2 >90% Begin weaning solu-medrol tomorrow; will plan to d/c on prednisone taper. Will get O2 qual testing completed tomorrow; patient is possible candidate for d/c home w/ O2. Labs and vital signs today are reassuring. Appetite is improved. All other chronic medical conditions are stable. - Time Time Spent with patient: 25-34 minutes Medications reviewed and adjusted accordingly: Yes Anticipated Discharge Disposition: Home, Self Care Anticipated Discharge Timeframe: within 48 hours
[2020-05-02] MEDS: ATORVASTATIN CALCIUM 20 MG TABLET PO SCH (21:40)
[2020-05-02] MEDS: MELATONIN 5 MG TABLET PO SCH (21:40)
[2020-05-03 03:51] LABS: APPEARANCE,URINE CLEAR; BILIRUBIN,URINE NEGATIVE (NEGATIVE); COLOR,URINE YELLOW; GLUCOSE, URINE 50 mg/dL (NEGATIVE); KETONES,URINE NEGATIVE (NEGATIVE); LEUKOCYTE ESTERASE,URINE NEGATIVE (NEGATIVE); NITRITE,URINE NEGATIVE (NEGATIVE); PROTEIN,URINE NEGATIVE (NEGATIVE); URINE SPECIFIC GRAVITY 1.014; UROBILINOGEN,URINE NEGATIVE mg/dL (<2.0)
[2020-05-03] MEDS: LEVOTHYROXINE SODIUM 0.025 MG TABLET PO SCH (05:11)
[2020-05-03] MEDS: ASCORBIC ACID 500 MG TABLET PO SCH ×2 (05:11→11:55)
[2020-05-03] MEDS: LEVOTHYROXINE SODIUM 0.1 MG TABLET PO SCH (05:11)
[2020-05-03] MEDS: METHYLPREDNISOLONE INJ 40 MG/1 ML SDV IV SCH ×2 (05:12→16:45)
[2020-05-03 07:30] LABS: HEMATOCRIT 33.6 % (36.0-47.0); HEMOGLOBIN 11.3 g/dL (12.0-15.5); MEAN CORPUSCULAR HEMOGLOBIN 24.8 pg (27.0-33.4); MEAN CORPUSCULAR HGB CONC 33.7 g/dL (32.0-36.0); MEAN CORPUSCULAR VOLUME 74 fl (80-97); PLATELET COUNT 272 10^3/uL (150-450); RED BLOOD COUNT 4.56 10^6/uL (3.72-5.28); WHITE BLOOD COUNT 9.1 10^3/uL (4.0-10.5)
[2020-05-03] MEDS: INSULIN REG, HUMAN 100 UNIT/ML 3 ML VIAL (PYX) SUBCUT SCH ×3 (08:15→16:45)
[2020-05-03] MEDS: CHOLECALCIFEROL (D3) 1,000 UNIT (25 MCG) TABLET PO SCH (09:50)
[2020-05-03] MEDS: ENOXAPARIN SODIUM INJ 40 MG/0.4 ML DISP.SYRIN SUBCUT SCH (09:50)
[2020-05-03] MEDS: ZINC SULFATE 220 MG CAPSULE PO SCH (09:50)
[2020-05-03] MEDS: GUAIFENESIN 600 MG TABLET.SA PO SCH (09:50)
[2020-05-03] MEDS: CITALOPRAM HYDROBROMIDE 20 MG TABLET PO SCH (09:50)
[2020-05-03] MEDS: VITAMIN B COMPLEX TABLET PO SCH (09:50)
[2020-05-03 16:58] VITALS: BP 103/42
--- NOTE | 2020-05-03 19:17 | PDOC DISCHARGE SUMMARY ---
Impression - Admit/DC Date/PCP Admission Date/Primary Care Provider: 04/27/20 12:36 MADIE DE LA O PA-C Discharge Date: 05/03/20 - Discharge Diagnosis (1) Pneumonia due to 2019-nCoV Is this a current diagnosis for this admission?: Yes (2) Acute hypoxemic respiratory failure Is this a current diagnosis for this admission?: Yes (3) Anxiety and depression Is this a current diagnosis for this admission?: Yes (4) Hyperlipidemia Is this a current diagnosis for this admission?: Yes (5) Hypothyroidism Is this a current diagnosis for this admission?: Yes (6) Obesity (BMI 30.0-34.9) Is this a current diagnosis for this admission?: Yes - Additional Information Discharge Diet: Diabetic Discharge Activity: Activity As Tolerated, Balance Activity w/Rest Referrals: MADIE DE LA O PA-C [Primary Care Provider] - 05/05/20 8:45 am (VIRTUAL APPT.) Prescriptions: Aspirin [Aspirin 325 mg Tablet] 325 mg PO DAILY PRN #1 pkg PRN Reason: Prednisone [Deltasone 20 mg Tablet] 20 mg PO ASDIR PRN #20 tablet PRN Reason: Vitamin B Complex [Vitamin B Complex Tablet] 1 tab PO DAILY #30 tablet Ascorbic Acid [Vitamin C 500 mg Tablet] 1,000 mg PO DAILY #60 tablet Cholecalciferol (Vitamin D3) [Vitamin D3 1000 Unit Tablet] 2,000 unit PO DAILY #60 tablet Zinc Sulfate [Zinc-220 Capsule] 220 mg PO DAILY #30 capsule Home Medications: Albuterol Sulfate [Proair HFA Inhalation Aerosol 8.5 gm MDI] 2 puff IH Q4HP PRN 04/27/20 Atorvastatin Calcium [Lipitor 20 mg Tablet] 20 mg PO QHS 04/27/20 Citalopram Hydrobromide [Citalopram HBr] 10 mg PO DAILY 04/27/20 Levothyroxine Sodium 125 mcg PO Q6AM 04/27/20 Acetaminophen [Tylenol 325 mg Tablet] 650 mg PO Q4HP PRN tablet 05/03/20 Ascorbic Acid [Vitamin C 500 mg Tablet] 1,000 mg PO DAILY #60 tablet 05/03/20 Aspirin [Aspirin 325 mg Tablet] 325 mg PO DAILY PRN #1 pkg 05/03/20 Atorvastatin Calcium [Lipitor 20 mg Tablet] 20 mg PO QHS tablet 05/03/20 Cholecalciferol (Vitamin D3) [Vitamin D3 1000 Unit Tablet] 2,000 unit PO DAILY #60 tablet 05/03/20 Melatonin [Melatonin 5 mg Tablet] 10 mg PO QHS tablet 05/03/20 Prednisone [Deltasone 20 mg Tablet] 20 mg PO ASDIR PRN #20 tablet 05/03/20 Vitamin B Complex [Vitamin B Complex Tablet] 1 tab PO DAILY #30 tablet 05/03/20 Zinc Sulfate [Zinc-220 Capsule] 220 mg PO DAILY #30 capsule 05/03/20 History of Present Illiness History of Present Illness: Per H&P by Dr. Wilson: FELIZ SHEFFIELD is a 49 year old female with a history of obesity, history of Nadya's thyroiditis with secondary hypothyroidism, [id number]-musibdxyt diabetes mellitus, and hyperlipidemia who presents with dyspnea. She has been sick for about 9 or 10 days total. She said it first started out with malaise, fatigue, body aches and occasional chills. She said a few days ago she started noticing worsening of her breathing. Last couple of days is gotten worse. She says she is at a point now where she cannot walk more than a few steps without getting short of breath. She feels a little short of breath at rest. Her SPO2 on room air was around 90%. This was while her breathing was in the upper 20s per minute. She said that several days ago she lost her sense of taste and smell. She tested positive for coronavirus in the ER. She has not received any outpatient therapy. She had an elevated CRP. She had bilateral patchy opacities on chest imaging. No evidence of PE. Hospital Course Hospital Course: (1) Pneumonia due to 2019-nCoV Patient was admitted to the medical floor on continuous telemetry and pulse oximetry. She was treated with the MATH+ protocol; consisting of numerous vitamin s upplements, IV Solu-Medrol, ivermectin and once daily doxycycline per protocol. D-dimer was monitored with appropriate anticoagulation provided via Lovenox; at discharge, she is recommended to continue ASA therapy. She was supported with supplemental O2 to maintain SPO2 greater than 90%. Patient has done well and oxygen needs have decreased; however, she does continue to require 3 lpm continuous use. She is otherwise hemodynamically stable with downward trend in her inflammatory markers. Therefore, she is discharged to home, with home O2, to continue her convalescence. We discussed warning signs/red flags to prompt her to seek immediate medical attention. (2) Acute hypoxemic respiratory failure Improved; continues to require supplemental oxygen to maintain oxygen saturations while at rest. It is unclear whether or not the patient's respiratory status will continue to improve as she recovers from COVID-19, however, she may possibly have a long- term sequela as a result of her infection. She is discharged home on supplemental oxygen via nasal cannula at 4 L/min. She is advised to wear her oxygen continuously until directed to begin weaning by her primary care provider. She may benefit from outpatient pulmonology referral if she continues to have dyspnea and hypoxia in 3 to 4 weeks. (3) Anxiety and depression Stable. Continue home dose citalopram. (4) Hyperlipidemia Continue home dose statin. (5) Hypothyroidism Continue home dose levothyroxine. (6) Obesity (BMI 30.0-34.9) Lifestyle modification and dietary discretion advised. Physical Exam Vital Signs: Temp Pulse Resp BP Pulse Ox 97.6 F 53 L 15 103/42 L 96 05/03/20 16:53 05/03/20 16:53 05/03/20 16:53 05/03/20 16:53 05/03/20 16:53 Intake & Output 05/02/20 05/03/20 05/04/20 06:59 06:59 06:59 Intake Total 2636 2430 260 Output Total 600 1400 Balance 2035 1030 260 Weight 81 kg 82.3 kg 82.3 kg General appearance: PRESENT: no acute distress, cooperative, obese, well- developed, well-nourished Head exam: PRESENT: atraumatic, normocephalic Eye exam: PRESENT: conjunctiva pink, EOMI, PERRLA. ABSENT: scleral icterus Mouth exam: PRESENT: moist, tongue midline Respiratory exam: PRESENT: clear to auscultation lorene, symmetrical, unlabored, other - Supplemental oxygen by nasal cannula. ABSENT: rales, rhonchi, wheezes Cardiovascular exam: PRESENT: RRR. ABSENT: diastolic murmur, rubs, systolic murmur Vascular exam: PRESENT: normal capillary refill Extremities exam: PRESENT: full ROM. ABSENT: calf tenderness, clubbing, pedal edema Musculoskeletal exam: PRESENT: ambulatory Neurological exam: PRESENT: alert, awake, oriented to person, oriented to place, oriented to time, oriented to situation, CN II-XII grossly intact. ABSENT: motor sensory deficit Psychiatric exam: PRESENT: appropriate affect, normal mood. ABSENT: homicidal ideation, suicidal ideation Skin exam: PRESENT: dry, intact, warm. ABSENT: cyanosis, rash Results Laboratory Results: WBC 9.1 10^3/uL (4.0-10.5) 05/03/20 07:12 RBC 4.56 10^6/uL (3.72-5.28) 05/03/20 07:12 Hgb 11.3 g/dL (12.0-15.5) L 05/03/20 07:12 Hct 33.6 % (36.0-47.0) L 05/03/20 07:12 MCV 74 fl (80-97) L 05/03/20 07:12 MCH 24.8 pg (27.0-33.4) L 05/03/20 07:12 MCHC 33.7 g/dL (32.0-36.0) 05/03/20 07:12 RDW 15.0 % (11.5-14.0) H 05/03/20 07:12 Plt Count 272 10^3/uL (150-450) 05/03/20 07:12 Lymph % (Auto) Not Reportable 05/02/20 05:45 [place] % (Auto) Not Reportable 05/02/20 05:45 Eos % (Auto) Not Reportable 05/02/20 05:45 Baso % (Auto) Not Reportable 05/02/20 05:45 Absolute Neuts (auto) Not Reportable 05/02/20 05:45 Absolute Lymphs (auto) Not Reportable 05/02/20 05:45 Absolute Monos (auto) Not Reportable 05/02/20 05:45 Absolute Eos (auto) Not Reportable 05/02/20 05:45 Absolute Basos (auto) Not Reportable 05/02/20 05:45 Total Counted 100 05/02/20 05:45 Seg Neutrophils % Not Reportable 05/02/20 05:45 Seg Neuts % (Manual) 76 % (42-78) 05/02/20 05:45 Lymphocytes % (Manual) 15 % (13-45) 05/02/20 05:45 Atypical Lymphs % 5 % (0) 05/02/20 05:45 Monocytes % (Manual) 4 % (3-13) 05/02/20 05:45 Eosinophils % (Manual) 0 % (0-6) 05/02/20 05:45 Basophils % (Manual) 0 % (0-2) 05/02/20 05:45 Abs Neuts (Manual) 5.8 10^3/uL (1.7-8.2) 05/02/20 05:45 Abs Lymphs (Manual) 1.5 10^3/uL (0.5-4.7) 05/02/20 05:45 Abs Monocytes (Manual) 0.3 10^3/uL (0.1-1.4) 05/02/20 05:45 Absolute Eos (Manual) 0.0 10^3/uL (0.0-0.6) 05/02/20 05:45 Abs Basophils (Manual) 0.0 10^3/uL (0.0-0.2) 05/02/20 05:45 Platelet Comment ADEQUATE 05/02/20 05:45 Polychromasia SLIGHT 05/02/20 05:45 Poikilocytosis SLIGHT 05/02/20 05:45 Ovalocytes SLIGHT 05/02/20 05:45 D-Dimer 0.96 ug/mL (0.00-0.50) H 04/30/20 05:30 Sodium 137.2 mmol/L (137-145) 05/02/20 05:45 Potassium 4.4 mmol/L (3.6-5.0) 05/02/20 05:45 Chloride 104 mmol/L (98-107) 05/02/20 05:45 Carbon Dioxide 27 mmol/L (22-30) 05/02/20 05:45 Anion Gap 6 (5-19) 05/02/20 05:45 BUN 22 mg/dL (7-20) H 05/02/20 05:45 Creatinine 0.60 mg/dL (0.52-1.25) 05/02/20 05:45 Est GFR ( Amer) > 60 (>60) 05/02/20 05:45 Est GFR (MDRD) Non-Af > 60 (>60) 05/02/20 05:45 Glucose 160 mg/dL (75-110) H 05/02/20 05:45 POC Glucose 150 mg/dL (70-110) H 05/03/20 15:06 Calcium 8.9 mg/dL (8.4-10.2) 05/02/20 05:45 Magnesium 2.0 mg/dL (1.6-2.3) 05/02/20 05:45 Ferritin 25.80 ng/mL (6.2-137.0) 05/02/20 05:45 Total Bilirubin 0.5 mg/dL (0.2-1.3) 05/01/20 07:44 Direct Bilirubin 0.3 mg/dL (0.0-0.4) 05/01/20 07:44 Neonat Total Bilirubin Not Reportable 05/01/20 07:44 Neonat Direct Bilirubin Not Reportable 05/01/20 07:44 Neonat Indirect Bili Not Reportable 05/01/20 07:44 AST 25 U/L (14-36) 05/01/20 07:44 ALT 21 U/L (<35) 05/01/20 07:44 Alkaline Phosphatase 57 U/L (38-126) 05/01/20 07:44 Lactate Dehydrogenase 160 U/L (120-246) 04/27/20 07:09 Troponin I < 0.012 ng/mL 04/27/20 04:00 C-Reactive Protein 6.4 mg/L (<10.0) 05/02/20 05:45 Total Protein 6.5 g/dL (6.3-8.2) 05/01/20 07:44 Albumin 3.3 g/dL (3.5-5.0) L 05/01/20 07:44 Urine Color YELLOW 05/03/20 03:24 Urine Appearance CLEAR 05/03/20 03:24 Urine pH 6.0 (5.0-9.0) 05/03/20 03:24 Ur Specific [place] 1.014 05/03/20 03:24 Urine Protein NEGATIVE mg/dL (NEGATIVE) 05/03/20 03:24 Urine Glucose (UA) 50 mg/dL (NEGATIVE) H 05/03/20 03:24 Urine Ketones NEGATIVE mg/dL (NEGATIVE) 05/03/20 03:24 Urine Blood NEGATIVE (NEGATIVE) 05/03/20 03:24 Urine Nitrite NEGATIVE (NEGATIVE) 05/03/20 03:24 Urine Bilirubin NEGATIVE (NEGATIVE) 05/03/20 03:24 Urine Urobilinogen NEGATIVE mg/dL (<2.0) 05/03/20 03:24 Ur Leukocyte Esterase NEGATIVE (NEGATIVE) 05/03/20 03:24 Urine WBC (Auto) 0 /HPF 05/03/20 03:24 Urine RBC (Auto) 0 /HPF 05/01/20 23:40 Squamous Epi Cells Auto 1 /HPF 05/03/20 03:24 Urine Mucus (Auto) RARE /LPF 05/01/20 23:40 Urine Ascorbic Acid 20 (NEGATIVE) H 05/03/20 03:24 Blood Type O POSITIVE 05/01/20 07:44 04/27/20 04:00 Troponin I < 0.012 Impressions: Chest X-Ray 04/27/20 03:22 IMPRESSION: Possible developing bibasilar pneumonia. Chest/Abdomen CTA 04/27/20 08:42 IMPRESSION: Bibasilar and lingular infiltrates consistent with pneumonia. Right hilar adenopathy most likely reactive although other etiologies cannot be excluded and radiographic surveillance is recommended. No pulmonary emboli. Plan Plan of Treatment: Patient is discharged home, in stable condition, with home oxygen therapy. She is advised to follow-up with her primary care provider within 1 week. Take medications as prescribed. Resume home dose metformin. Complete 10-day home quarantine; quarantine will be completed 05/05/2020. Return to the emergency department, as needed, for concerning symptoms. Time Spent: Greater than 30 Minutes Stroke Is this a Stroke Patient?: No Acute Heart Failure Is this a Heart Failure Patient?: No
== END 2020-05-03 18:14 | disposition home or self-care (01) | DRG 177 ==
LOC: ER 00:27 → EH 12:36 → 3W 13:50 → 4S 04-28 17:44
PROVIDERS: ADMIT Family Medicine; ATTEND Registered Nurse
PROC: XW13325 Transfusion of Convalescent Plasma (Nonautologous) into Peripheral Vein, Percutaneous Approach, New Technology Group 5 (ICD-10-PCS; principal; 2020-05-01)
DX: U07.1 COVID-19 (principal); J12.82 Pneumonia due to coronavirus disease 2019; J96.01 Acute respiratory failure with hypoxia; F41.8 Other specified anxiety disorders; E78.5 Hyperlipidemia, unspecified; E66.8 Other obesity; E11.9 Type 2 diabetes mellitus without complications; I10 Essential (primary) hypertension; E03.8 Other specified hypothyroidism; E06.3 Autoimmune thyroiditis; Z68.34 Body mass index [BMI] 34.0-34.9, adult; Z79.82 Long term (current) use of aspirin; Z79.899 Other long term (current) drug therapy; Z79.84 Long term (current) use of oral hypoglycemic drugs; Z87.891 Personal history of nicotine dependence; Z83.3 Family history of diabetes mellitus; Z83.42 Family history of familial hypercholesterolemia; Z82.49 Family history of ischemic heart disease and other diseases of the circulatory system
CPT/HCPCS: 36415; 36430; 71045; 71275; 80048; 80053; 81001; 82728; 82962; 83615; 83735; 84484; 85025; 85027; 85379; 86140; 86900; 86901; 93005; 93010; 96361; 96374; 99285; J1100; J1650; J1815; J2920; J3490; J7030; J7120